=== PATIENT | male | born 1945 | race Caucasian/White ===

== ENCOUNTER 2021-05-10 15:58 | Inpatient (IN) | payer MEDICARE, OTHER, SELFPAY ==
[2021-05-10] VITALS (9 sets, daily range): BP systolic 104–164; BP diastolic 82–105; PULSE 90–107; RESP 17–27; TEMP 36.7–37.2; O2SAT 93–100
--- NOTE | ~2021-05-10 | US_ITS ---
EXAMINATION: US thoracentesis DATE: 05/12/2021 12:31 INDICATION: Right pleural effusion TECHNIQUE: The procedure and its risks and benefits were discussed with the patient. Potential risks discussed included bleeding, infection, and pneumothorax. The patient understood the risks and agreed to proceed. The skin was prepped and draped in sterile fashion. 1% lidocaine was used for local anes thesia. Under ultrasound guidance, a 5 Fr catheter with trochar was advanced into the right pleural e ffusion. Fluid was aspirated. The catheter was removed, and a dressing was applied. There were no imm ediate complications. FINDINGS: Ultrasound images demonstrate a small to moderate right pleural effusion and the catheter within the fluid. IMPRESSION: 1. Successful ultrasound-guided thoracentesis yielding 900 mL of clear yellow fluid. Reviewed, dictated and finalized at location A. ATRICIAN/MEDICAL DOCTOR
--- NOTE | ~2021-05-10 | XR_ITS ---
XR chest 1V portable DATE: 05/11/2021 08:58 INDICATION: Congestive heart failure, COPD. Shortness of breath. TECHNIQUE: Portable upright AP chest on May 11, 2021 at 0853 hours COMPARISON: May 10, 2021 CTA chest FINDINGS: Cardiomegaly. Aortic valve stent. Aortic arch calcification. There is pulmonary vascular co ngestion and redistribution. There is diffuse interstitial prominence and there are patchy diffuse bi lateral pulmonary infiltrates, more prominent in the lower lung zones. The infiltrates are likely due to congestive heart failure/pulmonary edema and some associated probable compressive atelectasis in the lower lung zones secondary to the pleural effusions. Pneumonia is not excluded. There are moderat e bilateral pleural effusions. Diffuse osteopenia. Dextroscoliosis and degenerative spurring of the thoracolumbar spine. IMPRESSION: Congestive heart failure, pulmonary edema and moderate pleural effusions Bilateral pulmonary infiltrates are likely due to pulmonary edema and compressive atelectasis seconda ry to pleural effusions, but pneumonia is not excluded Aortic valve stent. Reviewed, dictated and finalized at location B. ARCH SCHOLAR IMPRESSION: Congestive heart failure, pulmonary edema and moderate pleural effu sions Bilateral pulmonary infiltrates are likely due to pulmonary edema and compressi ve atelectasis secondary to pleural effusions, but pneumonia is not excluded Aortic valve stent.
--- NOTE | ~2021-05-10 | XR_ITS ---
EXAMINATION: [id number] DATE: 05/12/2021 12:15 INDICATION: Right pleural effusion postthoracentesis TECHNIQUE: frontal view of the chest was obtained. COMPARISON: Chest radiograph dated 05/11/2021 FINDINGS: Near complete resolution of a now tiny right pleural effusion post right thoracentesis. Unchanged sma ll to moderate-sized left pleural effusion. Opacities in the lateral mid and lower lung zones most li alo combination of mild pulmonary edema and atelectasis although pneumonia not excludable. Couple un changed skin folds project over the lateral right lower lung zone. No pneumothorax. Cardiomegaly. Aor tic valve repair. There are some surgical clips at the left hilum IMPRESSION: 1. Near complete resolution of a now tiny right pleural effusion post right thoracentesis. 2. Unchanged small to moderate left pleural effusion. 3. Mild opacities in the bilateral mid and lower lung zones likely combination of mild pulmonary марина a and atelectasis with differential including less likely pneumonia. 4. Cardiomegaly with prior aortic valve repair. Reviewed, dictated and finalized at location A. RETE BOOM OPERATOR IMPRESSION: 1. Near complete resolution of a now tiny right pleural effusion post right tho racentesis. 2. Unchanged small to moderate left pleural effusion. 3. Mild opacities in the bilateral mid and lower lung zones likely combination of mild pulmonary edema and atelectasis with differential including less likely pneumonia. 4. Cardiomegaly with prior aortic valve repair.
--- NOTE | ~2021-05-10 | XR_ITS ---
EXAMINATION: XR chest 1V portable DATE: 05/16/2021 06:27 INDICATION: Shortness of breath TECHNIQUE: frontal view of the chest was obtained. COMPARISON: Chest radiograph dated 05/12/2021 FINDINGS: Or opacities throughout both lungs greatest in the lower lung zones with blunting at the costophrenic angles. No pneumothorax. Cardiomegaly. Aortic valve repair. IMPRESSION: 1. Bilateral basilar predominant airspace opacities consistent with small bilateral pleural effusions and associated atelectasis and/or pneumonia. 2. Cardiomegaly. Reviewed, dictated and finalized at location A. E MERCHANDISER IMPRESSION: 1. Bilateral basilar predominant airspace opacities consistent with small bilat eral pleural effusions and associated atelectasis and/or pneumonia. 2. Cardiomegaly.
--- NOTE | ~2021-05-10 | CT_ITS ---
EXAMINATION: CTA chest PE protocol EXAM DATE: 05/10/2021 19:25 INDICATION: Shortness of breath . TECHNIQUE: Spiral CTA of the chest (pulmonary arteries) was performed with 200 cc Omnipaque 350 intr avenous contrast injection. Images were acquired during the pulmonary arterial phase. Coronal maxi mum intensity projection 3D-reconstructions were created by the technologist on dedicated workstation . Axial, coronal and sagittal reformatted images were reviewed. The dose-length product (DLP) for t his examination was 1736.32 mGy-cm. The exposure was tailored according to patient size (auto mA ex posure control), and iterative reconstruction (ASIR) was used as additional dose reduction technique. There is no prior study for comparison. FINDINGS: The main, central pulmonary arteries are dilated which can indicate elevated pulmonary darrell rial pressure, pulmonary arterial hypertension. Pulmonary arteries are well opacified and without in traluminal filling defects. There is cardiomegaly. There is a moderate to large bilateral pleural ef fusions. There is bilateral airspace disease probably pulmonary edema. Aortic valve stent/replacement . There is emphysema. Generalized body wall edema. IMPRESSION: 1. Moderate to large pleural effusions. Adjacent segmental atelectasis. 2. Cardiomegaly. Probable pulmonary edema. Consider CHF. 3. Dilated pulmonary arteries without filling defects. Reviewed, dictated and finalized at location G. PER DRIVER
[2021-05-10 18:22] LABS: Alveolar/Arterial O2 Gradient 95.8 mmHg; Base Excess ABG -7.7 mEq/l (+/-2.0); Fractional Inspired Oxygen 30 %; HCO3 ABG 17.4 mEq/l (22.0-26.0); Oxygen Content ABG 14.7 %vol (16.0-22.0); PCO2 ABG 33.7 mmHg (35.0-45.0); PO2 ABG 78.5 mmHg (80.0-100.0); PO2 FiO2 Ratio Arterial Blood 2.62 %; Total Hemoglobin 11.3 g/dL (12.0-18.0)
[2021-05-10 18:24] LABS: Device NASAL CANNULA; Liters per Minute 2.5 LPM; Modified Allen's Test Pass; Site Drawn RIGHT RADIAL
[2021-05-10 18:32] LABS: Basophils Absolute Auto 0.1 K/mm3 (0.0-0.1); Basophils Percent Auto 0.6 % (0.2-1.2); Eosinophils Percent Auto 0.1 % (0-4.4); Hematocrit 35.8 % (42.0-52.0); Hemoglobin 10.5 g/dL (14.0-18.0); Immature Granulocyte Absolute 0.04 K/mm3 (0.00-0.031); Immature Granulocyte Percent A 0.4 % (0-0.5); Lymphocytes Absolute Auto 1.04 K/mm3 (0.9-3.2); Lymphocytes Percent Auto 11.5 % (18.3-44.2); Mean Corpuscular HGB Conc 29.3 g/dl (32-36); Mean Corpuscular Hemoglobin 25.2 pg (26-34); Mean Corpuscular Volume 85.9 fl (80-100); Mean Platelet Volume 10.5 fl (7.4-10.4); Monocytes Absolute Auto 0.9 K/mm3 (0.1-0.6); Monocytes Percent Auto 9.8 % (2.6-8.5); Neutrophils Percent Auto 77.6 % (45.5-73.1); Platelet Count Result 194 k/mm3 (150-375); Red Blood Count 4.17 M/mm3 (4.6-6.20); Red Cell Distribution Width 20.8 % (11.5-14.5)
[2021-05-10 18:42] LABS: Alanine Aminotransferase 16 U/L (4-50); Albumin Level 3.9 g/dL (3.5-5.1); Alkaline Phosphatase 122 U/L (38-126); Anion Gap 10 mmol/L (8-16); Aspartate Amino Transferase 26 U/L (17-59); Bilirubin,Total 0.5 mg/dL (0.2-1.3); Blood Urea Nitrogen 29 mg/dL (9-20); Calcium 8.7 mg/dL (8.4-10.2); Carbon Dioxide 22 mmol/L (22-30); Chloride 108 mmol/L (98-107); Estimated CRCL calculation 44 ml/min; Estimated Glomerular Filt Rate 59; Glucose 112 mg/dL (65-110); Potassium 4.2 mmol/L (3.4-5.0); Sodium 140 mmol/L (137-145)
[2021-05-10 18:45] LABS: INR 1.4; Partial Thromboplastin Time 31.1 SECONDS (22.3-36.8); Prothrombin Time 17.1 Seconds (11.1-14.7)
[2021-05-10 18:57] LABS: NT Pro B Type Natriuretic Pept 26300 pg/mL (5-100)
--- NOTE | 2021-05-10 18:58 | ED.GENADULT ---
HPI - General Adult General Chief complaint: Recheck/Abnormal Lab/Rx Stated complaint: Low Oxygen Levels Time Seen by Provider: 05/10/21 17:48 History of Present Illness HPI narrative: Patient is a 75-year-old male who presents ER with low pulse oximeter reading. Went to see Dr. Baca to establish care today and was found to have a pulse oximeter reading in the 80s. Patient reports he has been having exertional dyspnea has been worsening since arriving in the area from [place] in the last month. He has history of COPD and has had a lobectomy. Reports that the slightest movements cause him to be extremely dyspneic which is atypical. He does have history of heart disease and recent TAVR. Reports some chest tightness with exertion but not at rest. Related Data Home Medications Medication Instructions Recorded Confirmed albuterol sulfate 90 mcg/actuation 1 inh INHALATION Q4H 05/10/21 05/10/21 aerosol inhaler aspirin 81 mg tablet,delayed 81 mg PO DAILY 05/10/21 05/10/21 release atorvastatin 40 mg tablet 40 mg PO DAILY 05/10/21 05/10/21 baclofen 10 mg tablet 10 mg PO DAILY 05/10/21 05/10/21 citalopram 40 mg tablet 20 mg PO DAILY 05/10/21 05/10/21 digoxin 125 mcg (0.125 mg) tablet 125 mcg PO DAILY 05/10/21 05/10/21 diphenhydramine HCl 25 mg tablet 25 mg PO QHS 05/10/21 05/10/21 ibuprofen 800 mg tablet 800 mg PO TID 05/10/21 05/10/21 lisinopril 10 mg tablet 10 mg PO DAILY 05/10/21 05/10/21 metoprolol tartrate 25 mg tablet 25 mg PO BID 05/10/21 05/10/21 mometasone 1 inh INHALATION DAILY 05/10/21 05/10/21 trazodone 100 mg tablet 100 mg PO QHS PRN 05/10/21 05/10/21 Allergies Allergy/AdvReac Type Severity Reaction Status Date / Time No Known Allergies Allergy Unverified 05/10/21 15:22 Review of Systems Review of Systems: All systems reviewed & are unremarkable except as noted in HPI and below Constitutional: Constitutional: Denies chills, Reports fatigue, Denies fever(s) and Reports weakness ENT: Denies nasal congestion and Denies sore throat Cardiovascular: Cardiovascular: Reports chest pain, Denies rapid heart rate and Denies radiating jaw, neck or arm pain Respiratory: Respiratory: Denies chest congestion, Reports cough, Reports dyspnea and Denies wheezing Gastrointestinal: Gastrointestinal: Denies abdominal pain, Denies diarrhea, Denies nausea and Denies vomiting PMFSH Past Medical History Medical History (Updated 05/10/21 @ 20:11 by Loyd Galo MD) Abnormality of gait CAD (coronary artery disease) COPD (chronic obstructive pulmonary disease) CVA, old, cognitive deficits History of alcohol use Hypertensive heart and chronic kidney disease PVD (peripheral vascular disease) Tobacco abuse Surgical History Surgical History (Updated 05/10/21 @ 19:01 by Loyd Galo MD) History of lobectomy of lung Hx of total knee arthroplasty R Status post transcatheter aortic valve replacement Social History Social History Social History: Smoking packs per day: 1 Smoking cigarettes per day: 20.0 Years smoked: 65 Smoking pack-years: 65.00 Smoking status: Current every day smoker Tobacco type: cigarettes Second hand tobacco smoke exposure: No Alcohol intake: former Substance use: never Substance use type: does not use Gender identity (if verbalized by the patient): Male Sexual Orientation (if Verbalized by the Patient): Straight or Heterosexual Exam Narrative: GENERAL: Chronically ill-appearing, well-nourished, and in no acute distress. HEAD: Normocephalic, atraumatic. EYES: PERRL and EOMI. ENT: Mucous membranes moist. CHEST: Clear to auscultation but diminished throughout. No respiratory distress. HEART: Regular rate and rhythm. Normal peripheral pulses. ABDOMEN: Soft, nontender, nondistended, normal active bowel sounds. EXTREMITIES: Normal range of motion. Tight lower extremity edema 3+ with venou
--- NOTE | 2021-05-10 19:03 | ECG_ITS ---
Measurements Intervals [place] Rate: 103 P: AK: 0 QRS: -51 QRSD: 104 T: 61 QT: 351 QTc: 461 Interpretive Statements ATRIAL FIBRILLATION WITH RAPID VENTRICULAR RESPONSE INCOMPLETE RIGHT BUNDLE BRANCH BLOCK CONSIDER ANTERIOR INFARCT, AGE INDETERMINATE INFERIOR INFARCT, AGE INDETERMINATE ABNORMAL ECG Electronically Signed On 05-10-2021 20:25:26 [employer] by Miguel Angel Lombardi D.O.
[2021-05-10] MEDS: FUROSEMIDE INJ 40 MG/4 ML VIAL IV PUSH (19:48)
[2021-05-10 19:49] LABS: Digoxin < 0.4 ng/mL (0.8-2.0)
--- NOTE | 2021-05-10 19:56 | PM.IMHP ---
H&P: HPI History of Present Illness Date/Time: 05/10/21 19:56 Chief Complaint: Shortness of breath Narrative: This is a 75-year-old male with past medical history significant for tobacco dependence, COPD/emphysema, peripheral vascular disease, stroke, coronary artery disease. Patient just recently relocated to this area from [place] and has yet to establish his care. He presents today to the emergency room due to worsening shortness of breath ongoing now for the last 2 weeks or so unable to sleep in the lab as 3 days due to orthopnea, also noticed a worsening bilateral lower extremity edema, cough productive of sputum which is yellowish to greenish and dark time killian on occasion, patient denies any fevers any chills any rigors, no chest pain, no nausea, no vomiting, no abdominal pain, no diarrhea. Preliminary workup was significant for CT angiogram of the chest with bilateral [id number] pleural effusions but no filling defects, a brain natriuretic peptide was up worse 26,300, a COVID test was negative, troponins x3 were elevated. Patient is being admitted for further evaluation management and treatment. Review of Systems Review of Systems: Shortness of breath, bilateral lower extremity edema, orthopnea. Constitutional: Constitutional: Denies chills, Reports fatigue, Denies fever(s), Denies night sweats and Reports poor appetite Eyes: Eyes: Denies change in vision ENT: Denies dysphagia, Denies vertigo, Denies dizziness, Denies nasal congestion, Denies nasal discharge, Denies nasal obstruction and Denies odynophagia Cardiovascular: Cardiovascular: Denies chest pain, Reports leg edema and Reports orthopnea Respiratory: Respiratory: Reports change in phlegm color, Reports cough, Reports excessive phlegm production and Reports dyspnea Gastrointestinal: Gastrointestinal: Denies abdominal pain, Denies dyspepsia, Denies heartburn, Denies diarrhea, Denies nausea and Denies vomiting Genitourinary: Genitourinary: Denies dysuria Musculoskeletal: Comments: Bilateral lower extremity swelling Integumentary/Breasts: Skin/Breast: Denies change in pigmentation and Denies rash Neurologic: Denies focal weakness and Denies Sensory deficit (Neuro) Psychiatric: Psychiatric: Reports no additional psychiatric complaints and Reports as per HPI Endocrine: Endocrine: Denies cold intolerance, Denies heat intolerance, Denies polyphagia, Denies polydipsia and Denies palpitations Hematologic/Lymphatic: Hematologic/Lymphatic: Reports no additional hematologic/lymphatic complaints and Reports as per HPI Allergic/Immunologic: Allergic/Immunologic: Reports no additional allergic/immunologic complaints and Reports as per HPI [facility] Past Medical History Medical History (Updated 05/10/21 @ 20:11 by Loyd Galo MD) Abnormality of gait CAD (coronary artery disease) COPD (chronic obstructive pulmonary disease) CVA, old, cognitive deficits History of alcohol use Hypertensive heart and chronic kidney disease PVD (peripheral vascular disease) Tobacco abuse Surgical History Surgical History (Updated 05/10/21 @ 19:01 by Loyd Galo MD) History of lobectomy of lung Hx of total knee arthroplasty R Status post transcatheter aortic valve replacement Family History Family History (Updated 05/10/21 @ 22:48 by Ricarda Campbell RN) Other Unknown family medical history Social History Social History Social History: Smoking packs per day: 2 Smoking cigarettes per day: 40.0 Years smoked: 60 Smoking pack-years: 120.00 Smoking status: Current every day smoker Tobacco type: cigarettes Second hand tobacco smoke exposure: No Alcohol intake: former Substance use: never Substance use type: does not use Gender identity (if verbalized by the patient): Male Sexual Orientation (if Verbalized by the Patient): Straight or Heterosexual Spiritual care concerns: N
[2021-05-10] MEDS: ONDANSETRON INJ 4 MG/2 ML VIAL IV PUSH ×2 (20:56→23:32)
[2021-05-10 21:11] LABS: SARS-CoV-2 RNA PCR Negative
--- NOTE | 2021-05-10 22:24 | ADMGEN ---
This patient, Donald Kruger, was admitted to IMU Room 206-01. Patient/family oriented to hospital policies and general routines including ID bracelet, bed and alarms, visiting hours, pain management, procedures, bathroom and other care routines, personal items, smoking policy, room service/diet, and visiting hours. Information on how to activate the Rapid Response Team has been discussed. Patient/Family are encouraged to report perceived risks to care and to ask questions if they do not understand what they are told or what they should do.
[2021-05-10] MEDS: HYDROcodone/acetaminophen (*CRX) 5-325 MG TABLET 1 TAB PO (23:31)
[2021-05-11] VITALS (29 sets, daily range): BP systolic 101–153; BP diastolic 64–111; PULSE 68–114; RESP 15–25; TEMP 36.6–37.4; O2SAT 94–100
[2021-05-11 01:46] LABS: Troponin I 0.312 ng/mL (0.000-0.034)
[2021-05-11] MEDS: methylPREDNISolone SOD SUCC 125 MG VIAL IV PUSH (02:33)
[2021-05-11] MEDS: IPRATROPIUM BR 0.02% INH SOLN 0.5 MG/2.5 ML VIAL INHALATION ×5 (03:41→21:43)
[2021-05-11] MEDS: ENOXAPARIN 80 MG/0.8 ML SYRINGE SUB-Q ×2 (05:50→20:54)
--- NOTE | 2021-05-11 06:00 | ECHO_ITS ---
Patient Info Name: Donald Kruger Age: 75 years : 1945 Gender: Male Ht: 67 in Wt: 176 lbs BSA: 1.96 m2 HR: 98 bpm BP: 145 / 76 mmHg Heart Rhythm: Atrial Fibrillation Technical Quality: Good Exam Date: 05/11/2021 2:59 PM Exam Location: [facility] Pulmonary Exam Room: [facility] Patient Status: Inpatient Admit Date: 05/11/2021 Staff Ordering Physician: Loyd Galo MD Vortex Operator: Elma Ramos RDCS Attending Provider: Frederic Lora MD Referring Physician: Iraj HUIZAR; Exam Type: CA echo doppler color flow Study Info Indications - chf Complete two-dimensional, color flow and Doppler transthoracic echocardiogram is performed. Summary 1. Complete two-dimensional, color flow and Doppler transthoracic echocardiogram is performed. 2. Normal left ventricular size with moderate concentric hypertrophy. Mild reduction of systolic function globally, with severe hypokinesis of the inferior septal wall, near akinesis of the basal inferior wall . Ejection fraction 40-45%. Diastolic dysfunction is present. 3. Right ventricular chamber dimension is moderately enlarged and hypokinetic. 4. Left atrial chamber dimension is severely enlarged. 5. Right atrial chamber dimension is severely enlarged. 6. There is moderate sclerosis and TAVR aortic valve stenosis with a peak velocity of 351 cm/s, mean gradient of 31 mmHg, and aortic valve area of 1.1 cm2. 7. There is mild to moderate eccentric mitral valve regurgitation. 8. There is moderate tricuspid valve regurgitation. 9. There is mild pulmonic regurgitation. 10. Moderate pulmonary hypertension, estimated pulmonary arterial systolic pressure is 61 mmHg. 11. Dilated inferior vena cava with >50% collapse upon inspiration consistent with elevated right atrial pressure, 15 mmHg. 12. left pleural effusion. 13. Atrial fibrillation. Left Ventricle Left ventricular chamber dimension is normal. Left ventricular systolic function is normal, estimated at 40-45%. There is moderately increased left ventricular wall thickness. Left ventricular septal wall motion is normal. The left ventricular diastolic function is abnormal. Right Ventricle Right ventricular chamber dimension is moderately enlarged and hypokinetic. Right ventricular systolic function is reduced. Left Atria Left atrial chamber dimension is severely enlarged. Right Atria Right atrial chamber dimension is severely enlarged. Aortic Valve The TAVR aortic valve is trileaflet. There is moderate sclerosis of the TAVR aortic valve leaflets. There is moderate sclerosis and TAVR aortic valve stenosis with a peak velocity of 351 cm/s, mean gradient of 31 mmHg, and aortic valve area of 1.1 cm2. There is no regurgitation of the TAVR aortic valve. Pulmonic Valve The pulmonic valve is normal. There is no pulmonic valve stenosis. There is mild pulmonic regurgitation. Mitral Valve The mitral valve has normal leaflets. There is no mitral valve stenosis. There is mild to moderate eccentric mitral valve regurgitation. Tricuspid Valve The tricuspid valve leaflets are normal. There is no significant tricuspid valve stenosis. There is moderate tricuspid valve regurgitation. Moderate pulmonary hypertension, estimated pulmonary arterial systolic pressure is 61 mmHg. Pericardium/Pleural The pericardium appears normal. There is no pericardial effusion. Inferior Vena Cava Dilated inferior vena cava with >50% collapse upon inspiration consistent wi
[2021-05-11] MEDS: FUROSEMIDE INJ 40 MG/4 ML VIAL IV PUSH ×2 (08:42→20:53)
--- NOTE | 2021-05-11 09:20 | PM.IMPN ---
Progress Note: A&P Assessment and Plan (1) Acute exacerbation of CHF (congestive heart failure): Code(s): I50.9 - Heart failure, unspecified Status: Acute Assessment and Plan: Admit to IMU Continue Bed rest Fluid restriction to 1500 cc daily Mcdonald catheter for accurate intake and output measurement 2D echocardiogram in a.m. Continuous telemetry Continuous pulse ox Continue metoprolol tartrate Continue digoxin Plan for thoracentesis tomorrow. (2) Elevated troponin: Code(s): R77.8 - Other specified abnormalities of plasma proteins Status: Acute Assessment and Plan: EKG reviewed no prior for comparison Will continue to monitor Trend troponins (3) CHF (congestive heart failure), NYHA class IV: Code(s): I50.9 - Heart failure, unspecified Status: Acute Assessment and Plan: Decompensated (4) CAD (coronary artery disease): Code(s): I25.10 - Atherosclerotic heart disease of [place] coronary artery without angina pectoris Status: Acute Assessment and Plan: Q-waves in inferior leads are present Chest pain (5) PVD (peripheral vascular disease): Code(s): I73.9 - Peripheral vascular disease, unspecified Status: Acute Assessment and Plan: Worsened Diuresing Wound care consult for lymphedema (6) Chronic hypoxemic respiratory failure: Code(s): J96.11 - Chronic respiratory failure with hypoxia Status: Acute Assessment and Plan: Currently supplemental oxygen by nasal cannula Try and keep oxygen saturation at 92-94% (7) CVA, old, cognitive deficits: Code(s): I69.319 - Unspecified symptoms and signs involving cognitive functions following cerebral infarction Status: Acute Assessment and Plan: Unchanged (8) COPD (chronic obstructive pulmonary disease): Code(s): J44.9 - Chronic obstructive pulmonary disease, unspecified Status: Acute Assessment and Plan: Exacerbated Systemic steroids Added Zithromax and Rocephin due to change in sputum quality Bilateral pleural effusions present on CT angio CT guided thoracentesis in the morning diagnostic and therapeutic Will send pleural fluid for studies Breathing treatments q.4 hours Continue to monitor (9) Tobacco abuse: Code(s): Z72.0 - Tobacco use Status: Acute Assessment and Plan: Patient down to 1-2 cigarettes daily Consider nicotine patch as needed (10) Atrial fibrillation with RVR: Code(s): I48.91 - Unspecified atrial fibrillation Status: Acute Assessment and Plan: There is no documented history of atrial fibrillation. Currently rate control with metoprolol and digoxin. Patient is not anticoagulated. She has as score 7. Plan to start anticoagulation with a NOAC after thoracentesis. Subjective Date/time seen: 05/11/21 09:20 Narrative: This is a 75-year-old male with past medical history significant for tobacco dependence, COPD/emphysema, peripheral vascular disease, stroke, coronary artery disease. Patient just recently relocated to this area from [place] and has yet to establish his care. He presents today to the emergency room due to worsening shortness of breath ongoing now for the last 2 weeks or so unable to sleep in the lab as 3 days due to orthopnea, also noticed a worsening bilateral lower extremity edema, cough productive of sputum which is yellowish to greenish and dark time killian on occasion, patient denies any fevers any chills any rigors, no chest pain, no nausea, no vomiting, no abdominal pain, no diarrhea. Preliminary workup was significant for CT angiogram of the chest with bilateral [id number] pleural effusions but no filling defects, a brain natriuretic peptide was up worse 26,300, a COVID test was negative, troponins x3 were elevated. Patient is being admitted for further evaluation management and treatment. S: Patient was seen and examined at the bedside. He is anxious and tamar
[2021-05-11 09:24] LABS: Alveolar/Arterial O2 Gradient 131.1 mmHg; Fractional Inspired Oxygen 36 %; HCO3 ABG 20.7 mEq/l (22.0-26.0); Oxygen Saturation ABG 92.4 % (95.0-100.0); Oxyhemoglobin 89.8 % THb (90.0-100.0); PO2 ABG 72.2 mmHg (80.0-100.0); PO2 FiO2 Ratio Arterial Blood 2.01 %; Total Hemoglobin 11.8 g/dL (12.0-18.0)
[2021-05-11 09:27] LABS: Device NASAL CANNULA; Modified Allen's Test Pass; Site Drawn RIGHT RADIAL; pH ABG 7.272 (7.350-7.450)
[2021-05-11 10:05] LABS: Anion Gap 9 mmol/L (8-16); Blood Urea Nitrogen 34 mg/dL (9-20); Calcium 7.9 mg/dL (8.4-10.2); Carbon Dioxide 20 mmol/L (22-30); Chloride 110 mmol/L (98-107); Estimated CRCL calculation 40 ml/min; Estimated Glomerular Filt Rate 54; Glucose 127 mg/dL (65-110); Magnesium 2.1 mg/dL (1.6-2.3); Potassium 4.2 mmol/L (3.4-5.0); Sodium 139 mmol/L (137-145)
--- NOTE | 2021-05-11 12:37 | PM.CNCAR ---
Assessment and Plan Assessment and plan (1) Atrial fibrillation with RVR: Code(s): I48.91 - Unspecified atrial fibrillation <TEO Michael - Last Filed: 05/11/21 15:50> Status: Acute <TEO Michael - Last Filed: 05/11/21 15:50> Assessment and Plan: Chronicity of this problem is unknown. Patient denies any known history of atrial fibrillation. He is already on digoxin and metoprolol and is reasonably rate controlled with this regimen. He is not anticoagulated. He does have a [id number] score of at least 7. Anticoagulation is indicated however, he is scheduled to undergo thoracentesis tomorrow so will hold off on a/c until this is complete then he can be started on a DOAC. <TEO Michael - Last Filed: 05/11/21 15:50> (2) Acute exacerbation of CHF (congestive heart failure): Code(s): I50.9 - Heart failure, unspecified <TEO Michael - Last Filed: 05/11/21 15:50> Status: Acute <TEO Michael - Last Filed: 05/11/21 15:50> Assessment and Plan: Presented with progressive shortness of breath, lower extremity edema, orthopnea. Chest x-ray showed bilateral pleural effusions, cardiomegaly. BNP was elevated at 26,300. Improving with IV diuresis. 2D echocardiogram has been ordered Agree with IV diuretics for now Plan for right thoracentesis tomorrow Daily weights Compression stockings Accurate intake and output Fluid restriction Low-sodium diet Further recommendations to follow upon review of echocardiogram <TEO Michael - Last Filed: 05/11/21 15:50> (3) Elevated troponin: Code(s): R77.8 - Other specified abnormalities of plasma proteins <TEO Michael - Last Filed: 05/11/21 15:50> Status: Acute <TEO Michael - Last Filed: 05/11/21 15:50> Assessment and Plan: Serial troponin levels were elevated but remained flat. Currently not complaining of any chest pain however, he does endorse chest discomfort from time to time with exertion. His EKG on admission did not have any evidence of acute ischemic changes. Elevated troponin probably secondary to demand ischemia from volume overload and hypoxia. However, would not be unreasonable for this patient to undergo an ischemic evaluation at some point, especially if echocardiogram shows any wall motion abnormalities, reduced EF. <TEO Michael - Last Filed: 05/11/21 15:50> (4) COPD (chronic obstructive pulmonary disease): Code(s): J44.9 - Chronic obstructive pulmonary disease, unspecified <TEO Michael - Last Filed: 05/11/21 15:50> Status: Acute <TEO Michael - Last Filed: 05/11/21 15:50> Assessment and Plan: Receiving nebulizer treatments. Pulmonology is following. Appreciate their involvement and recommendations. <TEO Michael - Last Filed: 05/11/21 15:50> (5) Tobacco abuse: Code(s): Z72.0 - Tobacco use <TEO Michael - Last Filed: 05/11/21 15:50> Status: Acute <TEO Michael - Last Filed: 05/11/21 15:50> Assessment and Plan: Has been smoking 2 packs per day since he was 14 years old. Has recently cut back on his smoking but remains a smoker. Smoking cessation encouraged <TEO Michael - Last Filed: 05/11/21 15:50> (6) CAD (coronary artery disease): Code(s): I25.10 - Atherosclerotic heart disease of [place] coronary artery without angina pectoris <TEO Michael - Last Filed: 05/11/21 15:50> Status: Acute <TEO Michael - Last Filed: 05/11/21 15:50> Assessment and Plan: Per patient's report he had an MD in July of last year. He does not know any of the details surrounding this event. He is unsure if he had stents placed or not. Unfortunately, we do not have any record this since this event took place [place] out of state. Continu
--- NOTE | 2021-05-11 13:05 | PM.CNPUL ---
Assessment and Plan Assessment and plan (1) COPD (chronic obstructive pulmonary disease): Code(s): J44.9 - Chronic obstructive pulmonary disease, unspecified Status: Acute Assessment and Plan: Patient with a 62 pack year tobacco history, current tobacco use, apical predominant centrilobular emphysema on his CT angiogram of the chest and carries a diagnosis of COPD. I have no PFTs. Patient does not know what inhalers he is on. Patient also states he has a left upper lobectomy for lung cancer in 1994 and this must be a partial resection as he has a left upper lobe on a CT angiogram. Currently the [place] [address], a chest x-ray and CT angiogram that show fluid overload with moderate right greater than left pleural effusion and he has improved with Lasix diuresis. I suspect the majority of his symptoms are caused from fluid overload and Cardiology has been consulted. Of note patient has a history of aortic valve stent seen on his radiographs. Currently the patient has worsening shortness of breath but actually states his phlegm has been better over the last week along with no change in his flow phlegm color. I do not believe the patient has a COPD exacerbations and I will continue beta agonist and muscarinic antagonist with albuterol 2.5 mg nebs q.4 hours and ipratropium 0.5 nebs q.4 hours. See no need for oral or systemic steroids at this point. Patient has no white blood cell count and no focal infiltrates on his chest x-ray. I Believe it is prudent to continue ceftriaxone and azithromycin pending negative blood cultures for 48 hours. Is COVID RT PCR study is negative and I will send influenza swab. Patient is scheduled for right thoracentesis and I think this is reasonable given his moderate size pleural effusion, respiratory issues and this will help us determine if this is a transudate versus an exudate. 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 Patient recently moved from [place] and I have no prior medical records. At baseline the patient states that he can walk across the room and then has dyspnea on exertion. Patient is currently using 1-2 cigarettes a day and has smoked from age 13 to current at an average of 1 pack per day for total of 62 pack years. Patient states he takes inhalers but does not know the name of them and he states that he is not on home oxygen. Patient denies vaping, illicit drug use, sandblasting, welding, asbestos were, professional painting or sand blasting. Patient worked as a tanker truck driver and electric cadet. Patient tells me that he has had worsening cough for 3 months and now his shortness of breath over the last few weeks has gotten so bad that he can no longer walk. The patient denied fever, chills, rigors. The patient states that he has chronic phlegm production that has improved over the last 1 week. The patient denies hemoptysis or chest pain. The patient states he sleeps in a recliner for the last year and a half that and that he cannot sleep lying down. Patient has chronic pedal edema and states that his pedal edema fluctuates and right now is about the same as it has been over the last 6 months. Patient presented to the emergency department on 2 1 with worsening shortness of breath and had a white blood cell count of 9.0, eosinophils 0.1%, troponins that were positive at 0.34, 0.32 and 0.31, BNP of 23 6300 a creatinine of 1.2. Patient had a blood gas on 2.5 L nasal cannula
[2021-05-11] MEDS: METOPROLOL TARTRATE 25 MG TABLET PO ×2 (14:00→20:54)
[2021-05-11 14:47] LABS: Lactate Dehydrogenase 539 U/L (313-618)
[2021-05-11] MEDS: cefTRIAXone 2 GM in SODIUM CHLORIDE 0.9% IV 100 ML 200 ML IVPB (16:46)
[2021-05-11] MEDS: lisinopriL 10 MG TABLET PO (16:46)
[2021-05-11] MEDS: DIGOXIN TAB 125 MCG TABLET PO (16:46)
[2021-05-11] MEDS: CITALOPRAM HYDROBROMIDE 20 MG TABLET 40 MG PO (16:46)
[2021-05-11] MEDS: ATORVASTATIN 40 MG TABLET PO (16:46)
[2021-05-11] MEDS: ASPIRIN 81 MG ENTERIC TABLET PO (16:46)
[2021-05-11] MEDS: HYDROcodone/acetaminophen (*CRX) 5-325 MG TABLET 1 TAB PO (20:53)
[2021-05-11] MEDS: traZODone HCL 50 MG TABLET 100 MG PO (20:54)
[2021-05-12] VITALS (25 sets, daily range): BP systolic 95–119; BP diastolic 69–101; PULSE 80–95; RESP 15–22; TEMP 36.2–36.7; O2SAT 90–100
[2021-05-12] MEDS: IPRATROPIUM BR 0.02% INH SOLN 0.5 MG/2.5 ML VIAL INHALATION ×3 (00:55→08:24)
[2021-05-12 05:32] LABS: Anion Gap 6 mmol/L (8-16); Blood Urea Nitrogen 45 mg/dL (9-20); Calcium 7.4 mg/dL (8.4-10.2); Carbon Dioxide 24 mmol/L (22-30); Chloride 107 mmol/L (98-107); Estimated CRCL calculation 46 ml/min; Estimated Glomerular Filt Rate 54; Glucose 158 mg/dL (65-110); Magnesium 2.2 mg/dL (1.6-2.3); Potassium 3.8 mmol/L (3.4-5.0); Sodium 137 mmol/L (137-145)
[2021-05-12 05:40] LABS: Digoxin 0.5 ng/mL (0.8-2.0)
[2021-05-12 09:43] LABS: INR 1.3; Partial Thromboplastin Time 30.7 SECONDS (22.3-36.8); Prothrombin Time 15.6 Seconds (11.1-14.7)
--- NOTE | 2021-05-12 09:44 | PM.IMPN ---
Progress Note: A&P Assessment and Plan (1) Acute exacerbation of CHF (congestive heart failure): Code(s): I50.9 - Heart failure, unspecified Status: Acute Assessment and Plan: Admit to IMU Continue Bed rest Continue Fluid restriction to 1500 cc daily Mcdonald catheter for accurate intake and output measurement 2D echocardiogram in a.m. Continuous telemetry Continuous pulse ox Continue metoprolol tartrate, lisinopril, metoprolol and spironolactone. Continue digoxin Thoracentesis with 900 mL of clear yellow fluid. Follow-up studies. (2) Elevated troponin: Code(s): R77.8 - Other specified abnormalities of plasma proteins Status: Acute Assessment and Plan: EKG reviewed no prior for comparison Will continue to monitor Trend troponins (3) CHF (congestive heart failure), NYHA class IV: Code(s): I50.9 - Heart failure, unspecified Status: Acute Assessment and Plan: Decompensated heart failure: Successful ultrasound-guided thoracentesis yielding 900 mL of clear yellow fluid. Continue IV diuretic, while monitoring chemistries. Monitor daily weight, intake and output. Continue fluid restriction as above. (4) CAD (coronary artery disease): Code(s): I25.10 - Atherosclerotic heart disease of [place] coronary artery without angina pectoris Status: Acute Assessment and Plan: Q-waves in inferior leads are present Chest pain (5) PVD (peripheral vascular disease): Code(s): I73.9 - Peripheral vascular disease, unspecified Status: Acute Assessment and Plan: Worsened Diuresing Wound care consult for lymphedema (6) Chronic hypoxemic respiratory failure: Code(s): J96.11 - Chronic respiratory failure with hypoxia Status: Acute Assessment and Plan: Currently supplemental oxygen by nasal cannula Try and keep oxygen saturation at 92-94% (7) CVA, old, cognitive deficits: Code(s): I69.319 - Unspecified symptoms and signs involving cognitive functions following cerebral infarction Status: Acute Assessment and Plan: Unchanged (8) COPD (chronic obstructive pulmonary disease): Code(s): J44.9 - Chronic obstructive pulmonary disease, unspecified Status: Acute Assessment and Plan: Exacerbated Systemic steroids Added Zithromax and Rocephin due to change in sputum quality Bilateral pleural effusions present on CT angio CT guided thoracentesis in the morning diagnostic and therapeutic Will send pleural fluid for studies Breathing treatments q.4 hours Continue to monitor (9) Tobacco abuse: Code(s): Z72.0 - Tobacco use Status: Acute Assessment and Plan: Patient down to 1-2 cigarettes daily Consider nicotine patch as needed (10) Atrial fibrillation with RVR: Code(s): I48.91 - Unspecified atrial fibrillation Status: Acute Assessment and Plan: There is no documented history of atrial fibrillation. Currently rate control with metoprolol and digoxin. Patient is not anticoagulated. She has as score 7. Plan to start anticoagulation with a NOAC after thoracentesis. Subjective Date/time seen: 05/12/21 09:10 S: Patient was seen examined at the bedside. He denies any complaints. Review of Systems Review of Systems: All systems reviewed & are unremarkable except as noted in HPI and below Constitutional: Constitutional: Denies chills, Reports fatigue, Denies fever(s), Denies night sweats and Reports poor appetite Eyes: Eyes: Denies change in vision ENT: Denies dysphagia, Denies vertigo, Denies dizziness, Denies nasal congestion, Denies nasal discharge, Denies nasal obstruction and Denies odynophagia Cardiovascular: Cardiovascular: Denies chest pain, Reports leg edema, Denies palpitations, Reports dyspnea and Reports orthopnea Respiratory: Respiratory: Reports change in phlegm color, Reports cough, Reports excessive phlegm production and Reports dyspnea Gastrointest
[2021-05-12] MEDS: METOPROLOL TARTRATE 25 MG TABLET PO ×2 (09:50→20:41)
[2021-05-12] MEDS: ATORVASTATIN 40 MG TABLET PO (09:50)
[2021-05-12] MEDS: FUROSEMIDE INJ 40 MG/4 ML VIAL IV PUSH ×2 (09:51→20:39)
[2021-05-12] MEDS: lisinopriL 10 MG TABLET PO (09:51)
[2021-05-12] MEDS: CITALOPRAM HYDROBROMIDE 20 MG TABLET 40 MG PO (09:51)
[2021-05-12] MEDS: DIGOXIN TAB 125 MCG TABLET PO (09:51)
--- NOTE | 2021-05-12 10:06 | PM.PNCARD ---
Progress Note: A&P Assessment and Plan (1) Acute exacerbation of CHF (congestive heart failure): Code(s): I50.9 - Heart failure, unspecified <TEO Michael - Last Filed: 05/12/21 13:11> Status: Acute <Anamika A. TEO Webb - Last Filed: 05/12/21 13:11> Assessment and Plan: Presented with progressive shortness of breath, lower extremity edema, orthopnea. Chest x-ray showed bilateral pleural effusions, cardiomegaly. BNP was elevated at 26,300. Improving with IV diuresis. 2D echocardiogram showed mild systolic dysfunction with severe hypokinesis of the inferior septal and basal inferior isidro. Diastolic dysfunction is present. Also has RV dysfunction. Agree with IV diuretics for now Daily weights Compression stockings Accurate intake and output Fluid restriction Low-sodium diet He is on medical therapy with lisinopril, metoprolol. Will add spironolactone. <TEO Michael - Last Filed: 05/12/21 13:11> (2) Atrial fibrillation with RVR: Code(s): I48.91 - Unspecified atrial fibrillation <TEO Michael - Last Filed: 05/12/21 13:11> Status: Acute <TEO Michael - Last Filed: 05/12/21 13:11> Assessment and Plan: History of atrial fibrillation for a number of years. He is rate controlled on digoxin and metoprolol. He is not anticoagulated due to history of GI bleeding. <TEO Michael - Last Filed: 05/12/21 13:11> (3) Elevated troponin: Code(s): R77.8 - Other specified abnormalities of plasma proteins <TEO Michael - Last Filed: 05/12/21 13:11> Status: Acute <TEO Michael - Last Filed: 05/12/21 13:11> Assessment and Plan: Serial troponin levels were elevated but remained flat. Currently not complaining of any chest pain however, he does endorse chest discomfort from time to time with exertion. His EKG on admission did not have any evidence of acute ischemic changes. Elevated troponin probably secondary to demand ischemia from volume overload and hypoxia. However, would not be unreasonable for this patient to undergo an ischemic evaluation at some point. <TEO Michael - Last Filed: 05/12/21 13:11> (4) COPD (chronic obstructive pulmonary disease): Code(s): J44.9 - Chronic obstructive pulmonary disease, unspecified <TEO Michael - Last Filed: 05/12/21 13:11> Status: Acute <TEO Michael - Last Filed: 05/12/21 13:11> Assessment and Plan: Receiving nebulizer treatments. Pulmonology is following. Appreciate their involvement and recommendations. <TEO Michael - Last Filed: 05/12/21 13:11> (5) Tobacco abuse: Code(s): Z72.0 - Tobacco use <TEO Michael - Last Filed: 05/12/21 13:11> Status: Acute <TEO Michael - Last Filed: 05/12/21 13:11> Assessment and Plan: Has been smoking 2 packs per day since he was 14 years old. Has recently cut back on his smoking but remains a smoker. Smoking cessation encouraged <TEO Michael - Last Filed: 05/12/21 13:11> (6) CAD (coronary artery disease): Code(s): I25.10 - Atherosclerotic heart disease of [place] coronary artery without angina pectoris <TEO Michael - Last Filed: 05/12/21 13:11> Status: Acute <TEO Michael - Last Filed: 05/12/21 13:11> Assessment and Plan: Per patient's report he had an HI in July of last year. He does not know any of the details surrounding this event. He is unsure if he had stents placed or not. Unfortunately, we do not have any record this since this event took place when [place] lived out of state. Continue aspirin, statin. <TEO Michael - Last Filed: 05/12/21 13:11> (7) NSVT (nonsustained ventricular tachycardia): Code(s): I47.2 - Ventricular tachycardia <TEO Michael - Last Filed: 05/12/21 13
--- NOTE | 2021-05-12 11:23 | PM.PNPUL ---
Progress Note: A&P Assessment and Plan (1) COPD (chronic obstructive pulmonary disease): Code(s): J44.9 - Chronic obstructive pulmonary disease, unspecified Status: Acute Assessment and Plan: 05/11 Patient with a 62 pack year tobacco history, current tobacco use, apical predominant centrilobular emphysema on his CT angiogram of the chest and carries a diagnosis of COPD. I have no PFTs. Patient does not know what inhalers he is on. Patient also states he has a left upper lobectomy for lung cancer in 1994 and this must be a partial resection as he has a left upper lobe on a CT angiogram. Currently the patient [place] [address], a chest x-ray and CT angiogram that show fluid overload with moderate right greater than left pleural effusion and he has improved with Lasix diuresis. I suspect the majority of his symptoms are caused from fluid overload and Cardiology has been consulted. Of note patient has a history of aortic valve stent seen on his radiographs. Currently the patient has worsening shortness of breath but actually states his phlegm has been better over the last week along with no change in his flow phlegm color. I do not believe the patient has a COPD exacerbations and I will continue beta agonist and muscarinic antagonist with albuterol 2.5 mg nebs q.4 hours and ipratropium 0.5 nebs q.4 hours. See no need for oral or systemic steroids at this point. Patient has no white blood cell count and no focal infiltrates on his chest x-ray. I Believe it is prudent to continue ceftriaxone and azithromycin pending negative blood cultures for 48 hours. Is COVID RT PCR study is negative and I will send influenza swab. Patient is scheduled for right thoracentesis and I think this is reasonable given his moderate size pleural effusion, respiratory issues and this will help us determine if this is a transudate versus an exudate. 05/12 patient tells me that he is improved. He has less shortness of breath. He feels stronger. He has no wheezing. Patient wore hospital BiPAP overnight. He appears comfortable and I will discontinue the BiPAP at night at this time. He has no wheezing and I do not think he has a COPD exacerbation and given his Afib I will change him to an inhaled long-acting muscarinic antagonist Incruse ellipta 62.5 at 1 puff Q day for his COPD. No steroids required at this time. Low clinical suspicion for pneumonia. Will discontinue antibiotics on 05/13 if blood cultures are negative for 48 hours. Currently is on 1 L nasal cannula saturations 92%, wean as tolerated. Scheduled to have right thoracentesis later today. He has diuresed 4.2 L since admission. Echo from yesterday with EF 40-45%, severe left atrial right atrial enlargement, moderate tricuspid regurg with a PASP of 61 moderately enlarged right ventricle with decreased function. Mild to moderate mitral valve regurgitation, TAVR with moderate stenosis valve area 1.1. Cardiology is following. 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 Patient recently moved from [place] and I have no prior medical records. At baseline the patient states that he can walk across the room and then has dyspnea on exertion. Patient is currently using 1-2 cigarettes a day and has smoked from age 13 to current at an average of 1 pack per day for total of 62 pack years. Patient states he takes inhalers but does not know the name of them and he states that he is not on home oxygen. Patient denies vaping, illicit drug use, sandblasting, welding, asbestos were, professional painting or sand blasting. Patient worked as a truck rental clerk and electric
[2021-05-12 13:22] LABS: Appearance Pleural Fluid Cloudy (Clear); Pleural fluid source Pleural fluid
[2021-05-12 13:23] LABS: Color Pleural Fluid Yellow (Colorless); Nucleated Cell Pleural Fluid 325 /uL (0-1000); RBC Pleural Fluid 1015 /uL (0-0)
[2021-05-12 13:36] LABS: Lymphocytes Pleural Fluid 49 %; Macrophages Pleural Fluid 12 %; Monocytes Pleural Fluid 2 %; Neutrophils Pleural Fluid 37 % (0-25)
[2021-05-12] MEDS: UMECLIDINIUM BROMIDE 62.5 MCG ELLIPTA 1 PUFF INHALATION (13:43)
[2021-05-12] MEDS: SPIRONOLACTONE 25 MG TABLET PO (14:32)
[2021-05-12] MEDS: ENOXAPARIN 80 MG/0.8 ML SYRINGE SUB-Q (17:40)
[2021-05-12] MEDS: cefTRIAXone 2 GM in SODIUM CHLORIDE 0.9% IV 100 ML 200 ML IVPB (17:40)
[2021-05-12] MEDS: HYDROcodone/acetaminophen (*CRX) 5-325 MG TABLET 1 TAB PO (20:40)
[2021-05-12] MEDS: traZODone HCL 50 MG TABLET 100 MG PO (20:40)
[2021-05-13] VITALS (19 sets, daily range): BP systolic 84–158; BP diastolic 47–79; PULSE 66–93; RESP 14–22; TEMP 36.3–37.2; O2SAT 93–100
[2021-05-13] MEDS: ENOXAPARIN 80 MG/0.8 ML SYRINGE SUB-Q ×2 (05:40→17:43)
[2021-05-13 06:31] LABS: Digoxin 0.5 ng/mL (0.8-2.0)
[2021-05-13 07:48] LABS: Anion Gap 1 mmol/L (8-16); Blood Urea Nitrogen 32 mg/dL (9-20); Calcium 7.3 mg/dL (8.4-10.2); Carbon Dioxide 30 mmol/L (22-30); Chloride 106 mmol/L (98-107); Estimated CRCL calculation 59 ml/min; Estimated Glomerular Filt Rate > 60; Glucose 120 mg/dL (65-110); Sodium 137 mmol/L (137-145)
[2021-05-13] MEDS: CITALOPRAM HYDROBROMIDE 20 MG TABLET 40 MG PO (08:37)
[2021-05-13] MEDS: SPIRONOLACTONE 25 MG TABLET PO (08:37)
[2021-05-13] MEDS: ATORVASTATIN 40 MG TABLET PO (08:37)
[2021-05-13] MEDS: METOPROLOL TARTRATE 25 MG TABLET PO ×2 (08:38→21:04)
[2021-05-13] MEDS: DIGOXIN TAB 125 MCG TABLET PO (08:38)
[2021-05-13] MEDS: lisinopriL 10 MG TABLET PO (08:38)
[2021-05-13] MEDS: FUROSEMIDE INJ 40 MG/4 ML VIAL IV PUSH (08:38)
[2021-05-13] MEDS: ASPIRIN 81 MG ENTERIC TABLET PO (08:38)
[2021-05-13] MEDS: UMECLIDINIUM BROMIDE 62.5 MCG ELLIPTA 1 PUFF INHALATION (09:37)
[2021-05-13] MEDS: POTASSIUM CHLORIDE 20 MEQ TABLET 40 MEQ PO (11:51)
[2021-05-13] MEDS: EUCERIN CREAM 120 GM JAR 1 APPLIC TOPICAL (11:51)
--- NOTE | 2021-05-13 13:11 | PM.PNCARD ---
Progress Note: A&P Additional Plan 75-year-old man with: Decompensated biventricular heart failure seems to be nearly euvolemic and I will transition him from IV to oral furosemide. Start with 40 mg daily. It seems clear that he has a prior TAVR valve and chronic atrial fib. What is not clear to me is whether not he has any history of coronary artery disease or not. Patient states that his son has all of the records that are pertinent to this. Apparently he is not anticoagulated because of hemorrhagic problems that were met with previous attempts to anticoagulate him in [place]. I will transition him again to oral furosemide today. I expect him to be stable for discharge in the next 24-48 hours. It will be very important that his son bring the relevant records to the office that pertain to his previous care in [place]. Ziyad Calderón MD [facility] Subjective Date/time seen: Date of service: 05/13/21 13:11 Interval history: Follow-up visit in this 75-year-old man with: Admission with shortness of breath picture of biventricular CHF has mild LV systolic dysfunction on echo, apparent history of chronic atrial fibrillation and history of TAVR procedure which was done previously in [place]. There is inconsistent information in the chart as to whether the patient has a history of coronary artery disease or not. The patient recalls being told of his need for valve replacement but does not recall being told of any disease coronary arteries. Electrocardiogram does show pathological Q-waves in the anterior and inferior leads. Feeling better today following thoracentesis of nearly 1 L of right pleural fluid. Patient is on Lasix 40 IV q.12 hours. Was not on any diuretics a on admission according to the med list. Patient states his previous physicians in [place] prescribed diuretics which he did not take because of the inconvenience of frequent urination. Exam Const: General: comfortable and no acute distress; No confusion Orientation/consciousness: No confusion HENMT: Head: normal to inspection, normocephalic and atraumatic Eyes: General: appearance normal, both eyes and all related structures Pupils: Equal, round and reactive pupils present Neck: Neck: no JVD Carotids: no bruits Resp: Auscultation: clear to auscultation bilaterally and diminished lung sounds Cardio: Rate: tachycardic (Mildly tachycardic) Rhythm: abnormal rhythm Heart sounds: Murmur heart sound present systolic mid, II/ and at the base GI: Auscultation: normal bowel sounds Skin: General skin exam: normal color Neuro: General: No confusion Cranial nerves: Yes Equal, round and reactive pupils present Cognition (Neuro): normal cognition (Seems to have a mild cognitive deficit) Extrem: General: abnormal to inspection, edema and pedal edema Objective Data Vital Signs Vital Signs: Vital Signs - 24 hr 05/12/21 13:43 05/12/21 14:00 05/12/21 16:00 Temperature 36.6 C Pulse Rate 80 84 Respiratory Rate 16 Blood Pressure 119/73 Pulse Oximetry 92 96 05/12/21 18:00 05/12/21 19:42 05/12/21 20:00 Temperature 36.2 C L Pulse Rate 87 91 93 Respiratory Rate 22 H 22 H Blood Pressure 99/69 L Pulse Oximetry 90 97 05/12/21 20:01 05/12/21 20:41 05/12/21 22:00 Temperature Pulse Rate 88 88 Respiratory Rate Blood Pressure Pulse Oximetry 97 05/12/21 23:40 05/13/21 00:00 05/13/21 00:27 Temperature 36.6 C Pulse Rate 84 77 78 Respiratory Rate 16 18 18 Blood Pressure 158/71 H Pulse Oximetry 97 97 97 05/13/21 01:49 05/13/21 03:58 05/13/21 04:00 Temperature Pulse Rate 84 80 88 Respiratory Rate 14 14 Blood Pressure Pulse Oximetry 96 96 05/13/21 05:00 05/13/21 06:00 05/13/21 08:00 Temperature 36.3 C L 36.4 C Pulse Rate 84 86 81 Respiratory Rate 14 17 Blood Pressure 106/69 108/76 Pulse Oximetry 98 100 05/13/21 08:38 05/13/21 09:38 05/13/21 09:55 Temperature Pul
--- NOTE | 2021-05-13 13:12 | PM.PNPUL ---
Progress Note: A&P Assessment and Plan (1) COPD (chronic obstructive pulmonary disease): Code(s): J44.9 - Chronic obstructive pulmonary disease, unspecified Status: Acute Assessment and Plan: 05/11 Patient with a 62 pack year tobacco history, current tobacco use, apical predominant centrilobular emphysema on his CT angiogram of the chest and carries a diagnosis of COPD. I have no PFTs. Patient does not know what inhalers he is on. Patient also states he has a left upper lobectomy for lung cancer in 1994 and this must be a partial resection as he has a left upper lobe on a CT angiogram. Currently the [place] [address], a chest x-ray and CT angiogram that show fluid overload with moderate right greater than left pleural effusion and he has improved with Lasix diuresis. I suspect the majority of his symptoms are caused from fluid overload and Cardiology has been consulted. Of note patient has a history of aortic valve stent seen on his radiographs. Currently the patient has worsening shortness of breath but actually states his phlegm has been better over the last week along with no change in his flow phlegm color. I do not believe the patient has a COPD exacerbations and I will continue beta agonist and muscarinic antagonist with albuterol 2.5 mg nebs q.4 hours and ipratropium 0.5 nebs q.4 hours. See no need for oral or systemic steroids at this point. Patient has no white blood cell count and no focal infiltrates on his chest x-ray. I Believe it is prudent to continue ceftriaxone and azithromycin pending negative blood cultures for 48 hours. Is COVID RT PCR study is negative and I will send influenza swab. Patient is scheduled for right thoracentesis and I think this is reasonable given his moderate size pleural effusion, respiratory issues and this will help us determine if this is a transudate versus an exudate. 05/12 patient tells me that he is improved. He has less shortness of breath. He feels stronger. He has no wheezing. Patient wore hospital BiPAP overnight. He appears comfortable and I will discontinue the BiPAP at night at this time. He has no wheezing and I do not think he has a COPD exacerbation and given his Afib I will change him to an inhaled long-acting muscarinic antagonist Incruse ellipta 62.5 at 1 puff Q day for his COPD. No steroids required at this time. Low clinical suspicion for pneumonia. Will discontinue antibiotics on 05/13 if blood cultures are negative for 48 hours. Currently is on 1 L nasal cannula saturations 92%, wean as tolerated. Scheduled to have right thoracentesis later today. He has diuresed 4.2 L since admission. Echo from yesterday with EF 40-45%, severe left atrial right atrial enlargement, moderate tricuspid regurg with a PASP of 61 moderately enlarged right ventricle with decreased function. Mild to moderate mitral valve regurgitation, TAVR with moderate stenosis valve area 1.1. Cardiology is following. Patient had a right thoracentesis later in the day with 900 mL of clear fluid removed, PH 7.37, Gram stain with white blood cells but no organisms seen differential was neutrophils 37, lymphocytes 49, monocytes 2, macrophages 12. Remainder of the studies are pending. there is no evidence of an empyema at this time. 05/13 patient tells me that he continues to improve but he still has some dyspnea on exertion and shortness of breath. He has no wheezing. Despite the BiPAP being discontinued yesterday he did wear it last night. Creatinine is 1.0 and he has diuresed 9.3 L since admission. Patient is on 1 L nasal cannula saturations 96-98%. I think the majority of this patient's clinical symptoms are related to cardiac issues with fluid overload rather than COPD, COPD exacerbation or pneumonia. I will discontinue antibiotics today as Cultures are negative for 48 hours. I counseled the patient on tobacco cessation Patient is chepe
[2021-05-13] MEDS: traZODone HCL 50 MG TABLET 100 MG PO (21:04)
[2021-05-14] VITALS (16 sets, daily range): BP systolic 97–132; BP diastolic 58–84; PULSE 63–90; RESP 16–20; TEMP 36.2–37.6; O2SAT 91–97
[2021-05-14 05:05] LABS: Hematocrit 28.5 % (42.0-52.0); Hemoglobin 8.4 g/dL (14.0-18.0); Immature Platelet Fraction Pct 6.4 % (0.9-11.2); Mean Corpuscular HGB Conc 29.5 g/dl (32-36); Mean Corpuscular Hemoglobin 25.2 pg (26-34); Mean Corpuscular Volume 85.6 fl (80-100); Mean Platelet Volume 10.7 fl (7.4-10.4); Platelet Count Result 140 k/mm3 (150-375); Red Blood Count 3.33 M/mm3 (4.6-6.20); Red Cell Distribution Width 19.8 % (11.5-14.5); White Blood Count 5.8 K/mm3 (4.5-10.0)
[2021-05-14] MEDS: ENOXAPARIN 80 MG/0.8 ML SYRINGE SUB-Q ×2 (05:43→17:40)
[2021-05-14 05:49] LABS: Digoxin 0.5 ng/mL (0.8-2.0)
[2021-05-14] MEDS: ATORVASTATIN 40 MG TABLET PO (08:20)
[2021-05-14] MEDS: ASPIRIN 81 MG ENTERIC TABLET PO (08:20)
[2021-05-14] MEDS: POTASSIUM CHLORIDE 20 MEQ TABLET.ER PO (08:20)
[2021-05-14] MEDS: CITALOPRAM HYDROBROMIDE 20 MG TABLET 40 MG PO (08:21)
[2021-05-14] MEDS: DIGOXIN TAB 125 MCG TABLET PO (08:21)
[2021-05-14] MEDS: lisinopriL 10 MG TABLET PO (08:22)
[2021-05-14] MEDS: METOPROLOL TARTRATE 25 MG TABLET PO ×2 (08:22→20:24)
[2021-05-14] MEDS: FUROSEMIDE 40 MG TABLET PO (08:22)
[2021-05-14] MEDS: SPIRONOLACTONE 25 MG TABLET PO (08:22)
[2021-05-14] MEDS: EUCERIN CREAM 120 GM JAR 1 APPLIC TOPICAL (08:23)
[2021-05-14] MEDS: HYDROcodone/acetaminophen (*CRX) 5-325 MG TABLET 1 TAB PO ×2 (08:28→18:39)
[2021-05-14 08:37] LABS: Anion Gap 1 mmol/L (8-16); Blood Urea Nitrogen 25 mg/dL (9-20); Calcium 7.5 mg/dL (8.4-10.2); Carbon Dioxide 32 mmol/L (22-30); Chloride 103 mmol/L (98-107); Estimated CRCL calculation 64 ml/min; Estimated Glomerular Filt Rate > 60; Glucose 105 mg/dL (65-110); Potassium 2.9 mmol/L (3.4-5.0); Sodium 136 mmol/L (137-145)
[2021-05-14] MEDS: UMECLIDINIUM BROMIDE 62.5 MCG ELLIPTA 1 PUFF INHALATION (10:14)
--- NOTE | 2021-05-14 12:03 | PM.PNCARD ---
Progress Note: A&P Assessment and Plan (1) Acute on chronic combined systolic and diastolic CHF (congestive heart failure): Code(s): I50.43 - Acute on chronic combined systolic (congestive) and diastolic (congestive) heart failure Status: Acute Assessment and Plan: Patient with CHF extubation, likely acute on chronic. Current echocardiogram shows LVEF 40-40%. Patient is status post TAVR, and current echo shows mean transvalvular gradient of 31 with a maximum velocity of 3.5 meters per sec, suggestive of aortic valve prosthesis stenosis. Awaiting medical records about TAVR procedure. -at this time, continue oral furosemide with close monitoring of electrolytes and renal function. Supplement potassium. -continue beta-dulce, Maykel inhibitor and spironolactone. Will consider switching MAYKEL-inhibitor to ARNI as an outpatient. (2) History of transcatheter aortic valve replacement (TAVR): Code(s): Z95.2 - Presence of prosthetic heart valve Status: Acute Assessment and Plan: Echo during this hospitalization showed elevated mean gradient and vmax across aortic valve prosthesis. Awaiting medical records from outside facility to compare the current echo findings. (3) Persistent atrial fibrillation: Code(s): I48.19 - Other persistent atrial fibrillation Status: Acute Assessment and Plan: Currently rate controlled. Not on anticoagulation due to history of ? Bleeding. Additional Plan Ziyad Calderón MD [facility] Subjective Date/time seen: 05/14/21 12:03 Interval history: Follow-up visit in this 75-year-old man with: Admission with shortness of breath picture of biventricular CHF has mild LV systolic dysfunction on echo, apparent history of chronic atrial fibrillation and history of TAVR procedure which was done previously in [place]. There is inconsistent information in the chart as to whether the patient has a history of coronary artery disease or not. The patient recalls being told of his need for valve replacement but does not recall being told of any disease coronary arteries. Electrocardiogram does show pathological Q-waves in the anterior and inferior leads. Feeling better today following thoracentesis of nearly 1 L of right pleural fluid. Patient is on Lasix 40 IV q.12 hours. Was not on any diuretics a on admission according to the med list. Patient states his previous physicians in [place] prescribed diuretics which he did not take because of the inconvenience of frequent urination. Date of service 05/14/2021-patient reports improvement in lower extremity and scrotal swelling. He denies chest pain. No palpitation or dizziness or syncope for on telemetry, patient is in atrial fibrillation with controlled ventricular response. He states that he had TAVR done in 2020 in [place]. Procedure report is not available. Awaiting medical records. Exam Narrative: PHYSICAL EXAMINATION: GENERAL: Ill-appearing male, Alert, oriented, no acute distress MENTAL STATUS: affect appropriate to mood EYES: Extraocular movements intact, no pallor EARS: External ears appear normal, hearing grossly normal NOSE: Normal and patent, no discharge MOUTH: Mucous membranes moist, tongue normal NECK: Supple, no JVD CHEST: Decreased breath sounds HEART: Normal rate, irregular rhythm, systolic murmur ABDOMEN: Soft, nontender NEUROLOGICAL: Alert, oriented, normal speech MUSCULOSKELETAL: No major deformity, no amputation EXTREMITIES: Mild pedal edema, no clubbing, no cyanosis SKIN: no rash on the exposed area, no cyanosis PSYCHIATRIC: Normal mood, appropriate affect Objective Data Vital Signs Vital Signs: Vital Signs - 24 hr 05/13/21 14:00 05/13/21 16:00 05/13/21 18:00 Temperature 37.2 C Pulse Rate 89 81 90 Respiratory Rate 20 Blood Pressure 109/68 Pulse Oximetry 100 05/13/21 20:00 05/13/21 21:04 05/13/21 22:00 Temperature 36.3 C L Pulse
--- NOTE | 2021-05-14 12:44 | PM.IMPN ---
Progress Note: A&P Assessment and Plan (1) Acute exacerbation of CHF (congestive heart failure): Code(s): I50.9 - Heart failure, unspecified Status: Acute Assessment and Plan: Continue Fluid restriction to 1500 cc daily Mcdonald catheter for accurate intake and output measurement 2D echocardiogram on 05/11/2021 ejection fraction 40-45% with severe hypokinesis of the inferior septal wall near akinesis of the basal inferior wall. Right ventricle moderately enlarged and hypokinetic moderate sclerosis and TAVR aortic valve stenosis with a peak velocity of 351 centimeter/seconds and mean gradient of 31 mm Hg with aortic valve area of 1.1 sq cm moderate tricuspid valve regurgitation moderate pulmonary hypertension 61 mm Hg left pleural effusion atrial fibrillation Continue metoprolol tartrate, lisinopril, metoprolol and spironolactone. Continue digoxin Thoracentesis with 900 mL of clear yellow fluid on 05/12/2021 (2) Elevated troponin: Code(s): R77.8 - Other specified abnormalities of plasma proteins Status: Acute Assessment and Plan: EKG reviewed no prior for comparison Will continue to monitor Trend troponins which remained flat (3) CHF (congestive heart failure), NYHA class IV: Code(s): I50.9 - Heart failure, unspecified Status: Acute Assessment and Plan: Decompensated heart failure: Successful ultrasound-guided thoracentesis yielding 900 mL of clear yellow fluid. Continue IV diuretic, while monitoring chemistries. Monitor daily weight, intake and output. Continue fluid restriction as above. (4) CAD (coronary artery disease): Code(s): I25.10 - Atherosclerotic heart disease of [place] coronary artery without angina pectoris Status: Acute Assessment and Plan: Q-waves in inferior leads are present Chest pain (5) PVD (peripheral vascular disease): Code(s): I73.9 - Peripheral vascular disease, unspecified Status: Acute Assessment and Plan: Worsened Diuresing Wound care consult for lymphedema (6) Chronic hypoxemic respiratory failure: Code(s): J96.11 - Chronic respiratory failure with hypoxia Status: Acute Assessment and Plan: Currently supplemental oxygen by nasal cannula Try and keep oxygen saturation at 92-94% (7) CVA, old, cognitive deficits: Code(s): I69.319 - Unspecified symptoms and signs involving cognitive functions following cerebral infarction Status: Acute Assessment and Plan: Unchanged (8) COPD (chronic obstructive pulmonary disease): Code(s): J44.9 - Chronic obstructive pulmonary disease, unspecified Status: Acute Assessment and Plan: Exacerbated Systemic steroids Added Zithromax and Rocephin due to change in sputum quality Bilateral pleural effusions present on CT angio CT guided thoracentesis done on 05/12/2021 0 fluid culture negative so far Breathing treatments q.4 hours Continue to monitor Antibiotics has been stopped now (9) Tobacco abuse: Code(s): Z72.0 - Tobacco use Status: Acute Assessment and Plan: Patient down to 1-2 cigarettes daily Consider nicotine patch as needed (10) Atrial fibrillation with RVR: Code(s): I48.91 - Unspecified atrial fibrillation Status: Acute Assessment and Plan: There is no documented history of atrial fibrillation. Currently rate control with metoprolol and digoxin. Patient is not anticoagulated. She has as score 7. Currently on Lovenox full dose Subjective Date/time seen: 05/14/21 12:44 Interval history: Feeling better since the paracentesis done mild cough which is chronic leg swelling is much more improved. Scrotal swelling has improved as well he has not ambulated much Review of Systems Review of Systems: All systems reviewed & are unremarkable except as noted in HPI and below (HPI) Exam Narrative: GENERAL: Ill-appearing male, Alert, oriented, no acute distress, on NC oxygt
--- NOTE | 2021-05-14 15:13 | PC.NURSE ---
This patient, Donald Kruger, was transferred to [[facility] ] on 05/14/21 at 1500. Personal belongings sent with patient. Report given to [ Elma]. Appropriate documentation sent with patient.
[2021-05-14] MEDS: traZODone HCL 50 MG TABLET 100 MG PO (20:24)
[2021-05-15] VITALS (9 sets, daily range): BP systolic 116–140; BP diastolic 71–88; PULSE 77–96; RESP 14–18; TEMP 36.7–36.9; O2SAT 94–100
[2021-05-15] MEDS: ENOXAPARIN 80 MG/0.8 ML SYRINGE SUB-Q (05:08)
[2021-05-15] MEDS: lisinopriL 10 MG TABLET PO (08:20)
[2021-05-15] MEDS: METOPROLOL TARTRATE 25 MG TABLET PO ×2 (08:20→20:48)
[2021-05-15] MEDS: POTASSIUM CHLORIDE 20 MEQ TABLET.ER PO (08:21)
[2021-05-15] MEDS: ATORVASTATIN 40 MG TABLET PO (08:21)
[2021-05-15] MEDS: CITALOPRAM HYDROBROMIDE 20 MG TABLET 40 MG PO (08:21)
[2021-05-15] MEDS: SPIRONOLACTONE 25 MG TABLET PO (08:21)
[2021-05-15] MEDS: ASPIRIN 81 MG ENTERIC TABLET PO (08:21)
[2021-05-15] MEDS: DIGOXIN TAB 125 MCG TABLET PO (08:21)
[2021-05-15] MEDS: FUROSEMIDE 40 MG TABLET PO (08:21)
[2021-05-15] MEDS: EUCERIN CREAM 120 GM JAR 1 APPLIC TOPICAL (08:22)
[2021-05-15] MEDS: UMECLIDINIUM BROMIDE 62.5 MCG ELLIPTA 1 PUFF INHALATION (09:03)
[2021-05-15 09:53] LABS: Anion Gap 0 mmol/L (8-16); Blood Urea Nitrogen 21 mg/dL (9-20); Calcium 7.7 mg/dL (8.4-10.2); Carbon Dioxide 35 mmol/L (22-30); Chloride 104 mmol/L (98-107); Estimated CRCL calculation 83 ml/min; Estimated Glomerular Filt Rate > 60; Glucose 151 mg/dL (65-110); Sodium 139 mmol/L (137-145)
--- NOTE | 2021-05-15 10:12 | PM.PNCARD ---
Progress Note: A&P Assessment and Plan (1) Acute on chronic combined systolic and diastolic CHF (congestive heart failure): Code(s): I50.43 - Acute on chronic combined systolic (congestive) and diastolic (congestive) heart failure Status: Acute Assessment and Plan: Patient with CHF extubation, likely acute on chronic. Current echocardiogram shows LVEF 40-40%. Patient is status post TAVR, and current echo shows mean transvalvular gradient of 31 with a maximum velocity of 3.5 meters per sec, suggestive of aortic valve prosthesis stenosis, or possible patient prosthesis mismatch. Awaiting medical records about TAVR procedure. -at this time, continue oral furosemide with close monitoring of electrolytes and renal function. Supplement potassium. -continue beta-dulce, Maykel inhibitor and spironolactone. Consider switching MAYKEL-inhibitor to ARNI as an outpatient. (2) History of transcatheter aortic valve replacement (TAVR): Code(s): Z95.2 - Presence of prosthetic heart valve Status: Acute Assessment and Plan: Echo during this hospitalization showed elevated mean gradient and vmax across aortic valve prosthesis. Awaiting medical records from outside facility to compare the current echo findings. Patient states that his son is trying to get the medical records. (3) Persistent atrial fibrillation: Code(s): I48.19 - Other persistent atrial fibrillation Status: Acute Assessment and Plan: Currently rate controlled. Not on anticoagulation due to history of ? Bleeding. (4) Pleural effusion: Code(s): J90 - Pleural effusion, not elsewhere classified Status: Acute Assessment and Plan: Patient is status post Successful ultrasound-guided thoracentesis yielding 900 mL of clear yellow fluid on 05/12/2021 (5) Abdominal pain: Code(s): R10.9 - Unspecified abdominal pain Status: Acute Assessment and Plan: Patient has been complaining of mild abdominal discomfort without associated symptoms. I spoke with staff, and further evaluation and management will be as per primary team. Recent liver enzymes within normal limits. Subjective Date/time seen: 05/15/21 10:12 Interval history: Follow-up visit in this 75-year-old man with: Admission with shortness of breath picture of biventricular CHF has mild LV systolic dysfunction on echo, apparent history of chronic atrial fibrillation and history of TAVR procedure which was done previously in [place]. There is inconsistent information in the chart as to whether the patient has a history of coronary artery disease or not. The patient recalls being told of his need for valve replacement but does not recall being told of any disease coronary arteries. Electrocardiogram does show pathological Q-waves in the anterior and inferior leads. Feeling better today following thoracentesis of nearly 1 L of right pleural fluid. Patient is on Lasix 40 IV q.12 hours. Was not on any diuretics a on admission according to the med list. Patient states his previous physicians in [place] prescribed diuretics which he did not take because of the inconvenience of frequent urination. Date of service 05/14/2021-patient reports improvement in lower extremity and scrotal swelling. He denies chest pain. No palpitation or dizziness or syncope for on telemetry, patient is in atrial fibrillation with controlled ventricular response. He states that he had TAVR done in 2020 in [place]. Procedure report is not available. Awaiting medical records. Date of Service 05/15/2021-patient reports improvement in shortness of breath. He denies chest pain. He complains of abdominal discomfort. Denies nausea or vomiting. On telemetry, patient had 9 beat NSVT. Patient is status post Successful ultrasound-guided thoracentesis yielding 900 mL of clear yellow fluid on 05/12/2021. Exam Narrative: PHYSICAL EXAMINATION: GENERAL: Ill-appearing male
[2021-05-15] MEDS: HYDROcodone/acetaminophen (*CRX) 5-325 MG TABLET 1 TAB PO ×2 (10:57→20:53)
--- NOTE | 2021-05-15 11:41 | PM.IMPN ---
Progress Note: A&P Assessment and Plan (1) Acute exacerbation of CHF (congestive heart failure): Code(s): I50.9 - Heart failure, unspecified Status: Acute Assessment and Plan: Continue Fluid restriction to 1500 cc daily Mcdonald catheter for accurate intake and output measurement 2D echocardiogram on 05/11/2021 ejection fraction 40-45% with severe hypokinesis of the inferior septal wall near akinesis of the basal inferior wall. Right ventricle moderately enlarged and hypokinetic moderate sclerosis and TAVR aortic valve stenosis with a peak velocity of 351 centimeter/seconds and mean gradient of 31 mm Hg with aortic valve area of 1.1 sq cm moderate tricuspid valve regurgitation moderate pulmonary hypertension 61 mm Hg left pleural effusion atrial fibrillation Continue metoprolol tartrate, lisinopril, metoprolol and spironolactone. Continue digoxin Thoracentesis with 900 mL of clear yellow fluid on 05/12/2021 RECHECK CXR IN AM. (2) Elevated troponin: Code(s): R77.8 - Other specified abnormalities of plasma proteins Status: Acute Assessment and Plan: EKG reviewed no prior for comparison Will continue to monitor Trend troponins which remained flat (3) CHF (congestive heart failure), NYHA class IV: Code(s): I50.9 - Heart failure, unspecified Status: Acute Assessment and Plan: Decompensated heart failure: Successful ultrasound-guided thoracentesis yielding 900 mL of clear yellow fluid. Continue IV diuretic, while monitoring chemistries. Monitor daily weight, intake and output. Continue fluid restriction as above. CURRENTLY ON ORAL DIURETIC (4) CAD (coronary artery disease): Code(s): I25.10 - Atherosclerotic heart disease of [place] coronary artery without angina pectoris Status: Acute Assessment and Plan: Q-waves in inferior leads are present Chest pain (5) PVD (peripheral vascular disease): Code(s): I73.9 - Peripheral vascular disease, unspecified Status: Acute Assessment and Plan: Worsened Diuresing Wound care consult for lymphedema (6) Chronic hypoxemic respiratory failure: Code(s): J96.11 - Chronic respiratory failure with hypoxia Status: Acute Assessment and Plan: Currently supplemental oxygen by nasal cannula Try and keep oxygen saturation at 92-94% (7) CVA, old, cognitive deficits: Code(s): I69.319 - Unspecified symptoms and signs involving cognitive functions following cerebral infarction Status: Acute Assessment and Plan: Unchanged (8) COPD (chronic obstructive pulmonary disease): Code(s): J44.9 - Chronic obstructive pulmonary disease, unspecified Status: Acute Assessment and Plan: Exacerbated Systemic steroids Added Zithromax and Rocephin due to change in sputum quality Bilateral pleural effusions present on CT angio CT guided thoracentesis done on 05/12/2021 0 fluid culture negative so far Breathing treatments q.4 hours Continue to monitor Antibiotics has been stopped now (9) Tobacco abuse: Code(s): Z72.0 - Tobacco use Status: Acute Assessment and Plan: Patient down to 1-2 cigarettes daily Consider nicotine patch as needed (10) Atrial fibrillation with RVR: Code(s): I48.91 - Unspecified atrial fibrillation Status: Acute Assessment and Plan: There is no documented history of atrial fibrillation. Currently rate control with metoprolol and digoxin. Patient is not anticoagulated. She has as score 7. Currently on Lovenox full dose. Will switch to apixaban (11) Abdominal pain: Code(s): R10.9 - Unspecified abdominal pain Status: Acute Assessment and Plan: Nonspecific. Likely due to Lovenox shot that he is getting. He had normal bowel movement today. Will continue to monitor however was switch his Lovenox to apixaban serial abdominal examination if worsens will do CT scan H&H is stable Additional Plan DISP
[2021-05-15 12:01] LABS: Basophils Percent Auto 0.4 % (0.2-1.2); Eosinophils Absolute Auto 0.1 K/mm3 (0-0.3); Hematocrit 29.9 % (42.0-52.0); Hemoglobin 8.8 g/dL (14.0-18.0); Immature Granulocyte Absolute 0.02 K/mm3 (0.00-0.031); Immature Granulocyte Percent A 0.4 % (0-0.5); Immature Platelet Fraction Pct 7.3 % (0.9-11.2); Lymphocytes Absolute Auto 0.63 K/mm3 (0.9-3.2); Lymphocytes Percent Auto 12.8 % (18.3-44.2); Mean Corpuscular HGB Conc 29.4 g/dl (32-36); Mean Corpuscular Hemoglobin 25.1 pg (26-34); Mean Corpuscular Volume 85.2 fl (80-100); Mean Platelet Volume 10.8 fl (7.4-10.4); Monocytes Absolute Auto 0.5 K/mm3 (0.1-0.6); Monocytes Percent Auto 9.6 % (2.6-8.5); Neutrophils Absolute Auto 3.7 K/mm3 (1.3-6.7); Neutrophils Percent Auto 74.8 % (45.5-73.1); Platelet Count Result 141 k/mm3 (150-375); Red Blood Count 3.51 M/mm3 (4.6-6.20); Red Cell Distribution Width 19.8 % (11.5-14.5); White Blood Count 4.9 K/mm3 (4.5-10.0)
[2021-05-15] MEDS: POTASSIUM CHLORIDE 20 MEQ PACKET (FOR LIQUID) 40 MEQ PO (12:45)
[2021-05-15 20:43] LABS: Glucose Pleural Fluid 151 mg/dL; LDH Pleural Fluid 67 U/L; Total Protein Pleural Fluid <3.0 g/dL
[2021-05-15] MEDS: traZODone HCL 50 MG TABLET 100 MG PO (20:48)
[2021-05-15] MEDS: APIXABAN 5 MG TABLET PO (20:48)
[2021-05-16] VITALS (9 sets, daily range): BP systolic 107–126; BP diastolic 77–78; PULSE 72–88; RESP 17–18; TEMP 36.3–36.7; O2SAT 93–97
[2021-05-16 07:23] LABS: Basophils Percent Auto 0.6 % (0.2-1.2); Eosinophils Absolute Auto 0.2 K/mm3 (0-0.3); Eosinophils Percent Auto 2.9 % (0-4.4); Hematocrit 27.3 % (42.0-52.0); Hemoglobin 8.1 g/dL (14.0-18.0); Immature Granulocyte Absolute 0.02 K/mm3 (0.00-0.031); Immature Granulocyte Percent A 0.4 % (0-0.5); Lymphocytes Absolute Auto 0.95 K/mm3 (0.9-3.2); Lymphocytes Percent Auto 18.2 % (18.3-44.2); Mean Corpuscular HGB Conc 29.7 g/dl (32-36); Mean Corpuscular Hemoglobin 24.8 pg (26-34); Mean Corpuscular Volume 83.5 fl (80-100); Mean Platelet Volume 10.6 fl (7.4-10.4); Monocytes Absolute Auto 0.5 K/mm3 (0.1-0.6); Monocytes Percent Auto 9.8 % (2.6-8.5); Neutrophils Absolute Auto 3.6 K/mm3 (1.3-6.7); Neutrophils Percent Auto 68.1 % (45.5-73.1); Platelet Count Result 127 k/mm3 (150-375); Red Blood Count 3.27 M/mm3 (4.6-6.20); Red Cell Distribution Width 19.6 % (11.5-14.5); White Blood Count 5.2 K/mm3 (4.5-10.0)
[2021-05-16 07:31] LABS: Anion Gap -1 mmol/L (8-16); Blood Urea Nitrogen 20 mg/dL (9-20); Calcium 7.7 mg/dL (8.4-10.2); Carbon Dioxide 34 mmol/L (22-30); Chloride 103 mmol/L (98-107); Estimated CRCL calculation 72 ml/min; Estimated Glomerular Filt Rate > 60; Glucose 125 mg/dL (65-110); Potassium 3.3 mmol/L (3.4-5.0); Sodium 136 mmol/L (137-145)
[2021-05-16] MEDS: HYDROcodone/acetaminophen (*CRX) 5-325 MG TABLET 1 TAB PO ×2 (07:48→14:54)
[2021-05-16] MEDS: UMECLIDINIUM BROMIDE 62.5 MCG ELLIPTA 1 PUFF INHALATION (08:15)
[2021-05-16 08:38] LABS: Anisocytosis 1+ (NORMAL); Platelet Estimate Adequate (Adequate)
[2021-05-16 08:39] LABS: Ovalocytes 2+ (NORMAL)
[2021-05-16] MEDS: APIXABAN 5 MG TABLET PO (08:54)
[2021-05-16] MEDS: CITALOPRAM HYDROBROMIDE 20 MG TABLET 40 MG PO (08:54)
[2021-05-16] MEDS: ASPIRIN 81 MG ENTERIC TABLET PO (08:54)
[2021-05-16] MEDS: POTASSIUM CHLORIDE 20 MEQ TABLET.ER PO (08:54)
[2021-05-16] MEDS: ATORVASTATIN 40 MG TABLET PO (08:54)
[2021-05-16] MEDS: DIGOXIN TAB 125 MCG TABLET PO (08:55)
[2021-05-16] MEDS: FUROSEMIDE 40 MG TABLET PO (08:56)
[2021-05-16] MEDS: METOPROLOL TARTRATE 25 MG TABLET PO (08:56)
[2021-05-16] MEDS: lisinopriL 10 MG TABLET PO (08:56)
[2021-05-16] MEDS: SPIRONOLACTONE 25 MG TABLET PO (08:56)
--- NOTE | 2021-05-16 10:33 | PM.PNCARD ---
Progress Note: A&P Additional Plan Elderly gentleman with aortic valve disease status post TAVR also with chronic atrial fibrillation. Presented with shortness of breath and some fluid overload. He is on oral furosemide and appears to be euvolemic. There is no ongoing cardiac reason for hospitalization that I can see. Appropriate follow-up in our office is already scheduled. We will hopefully receive records from the facility in [facility] that performed his aortic valve replacement. Ziyad Calderón MD [facility] Subjective Date/time seen: Date of service: 05/16/21 10:33 Interval history: Follow-up visit in this 75-year-old man with: Admission with shortness of breath picture of biventricular CHF has mild LV systolic dysfunction on echo, apparent history of chronic atrial fibrillation and history of TAVR procedure which was done previously in [place]. There is inconsistent information in the chart as to whether the patient has a history of coronary artery disease or not. The patient recalls being told of his need for valve replacement but does not recall being told of any disease coronary arteries. Electrocardiogram does show pathological Q-waves in the anterior and inferior leads. Feeling better today following thoracentesis of nearly 1 L of right pleural fluid. Patient is on Lasix 40 IV q.12 hours. Was not on any diuretics a on admission according to the med list. Patient states his previous physicians in [place] prescribed diuretics which he did not take because of the inconvenience of frequent urination. Date of service 05/14/2021-patient reports improvement in lower extremity and scrotal swelling. He denies chest pain. No palpitation or dizziness or syncope for on telemetry, patient is in atrial fibrillation with controlled ventricular response. He states that he had TAVR done in 2020 in [place]. Procedure report is not available. Awaiting medical records. Date of Service 05/15/2021-patient reports improvement in shortness of breath. He denies chest pain. He complains of abdominal discomfort. Denies nausea or vomiting. On telemetry, patient had 9 beat NSVT. Patient is status post Successful ultrasound-guided thoracentesis yielding 900 mL of clear yellow fluid on 05/12/2021. Date of service 05/16/2021: Patient is feeling sleepy today otherwise no specific cardiovascular complaints. He want to discuss with me the reason for fluid restriction and would like a more liberalized diet. Exam Narrative: PHYSICAL EXAMINATION: GENERAL: Ill-appearing male, Alert, oriented, no acute distress MENTAL STATUS: affect appropriate to mood EYES: Extraocular movements intact, no pallor EARS: External ears appear normal, hearing grossly normal NOSE: Normal and patent, no discharge MOUTH: Mucous membranes moist, tongue normal NECK: Supple, no JVD CHEST: Decreased breath sounds HEART: Normal rate, irregular rhythm, systolic murmur consistent with his TAVR prosthesis ABDOMEN: Soft, nontender NEUROLOGICAL: Alert, oriented, normal speech MUSCULOSKELETAL: No major deformity, no amputation EXTREMITIES: No discernible edema, no clubbing, no cyanosis SKIN: no rash on the exposed area, no cyanosis PSYCHIATRIC: Normal mood, appropriate affect Const: General: comfortable and no acute distress; No confusion Orientation/consciousness: No confusion HENMT: Head: normal to inspection, normocephalic and atraumatic Eyes: General: appearance normal, both eyes and all related structures Pupils: Equal, round and reactive pupils present Neck: Neck: no JVD Carotids: no bruits Resp: Auscultation: clear to auscultation bilaterally and diminished lung sounds Cardio: Rate: tachycardic (Mildly tachycardic) Rhythm: abnormal rhythm Heart sounds: Murmur heart sound present systolic mid, II/ and at the base GI: Auscultation: normal bowel sounds Skin: General skin exam: normal color Neuro: General: No confu
[2021-05-16] MEDS: EUCERIN CREAM 120 GM JAR 1 APPLIC TOPICAL (11:49)
--- NOTE | 2021-05-16 13:09 | PM.DS ---
DS: Admitting Diagnosis Discharge Date 05/16/2021 Admitting Diagnosis Shortness of breath DS: Discharge Diagnosis Discharge Diagnosis (1) Acute exacerbation of CHF (congestive heart failure): Code(s): I50.9 - Heart failure, unspecified Status: Acute Assessment and Plan: Continue Fluid restriction to 1500 cc daily Mcdonald catheter for accurate intake and output measurement which has now been removed. 2D echocardiogram on 05/11/2021 ejection fraction 40-45% with severe hypokinesis of the inferior septal wall near akinesis of the basal inferior wall. Right ventricle moderately enlarged and hypokinetic moderate sclerosis and TAVR aortic valve stenosis with a peak velocity of 351 centimeter/seconds and mean gradient of 31 mm Hg with aortic valve area of 1.1 sq cm moderate tricuspid valve regurgitation moderate pulmonary hypertension 61 mm Hg left pleural effusion atrial fibrillation Continue metoprolol tartrate, lisinopril, metoprolol and spironolactone. Continue digoxin Thoracentesis with 900 mL of clear yellow fluid on 05/12/2021 RECHECK CXR with persistent opacities but continued to improve from admission continue oral diuresis clinically euvolemic On supplementation along with Lasix. Recheck BMP in 1 week and follow as outpatient basis (2) Elevated troponin: Code(s): R77.8 - Other specified abnormalities of plasma proteins Status: Acute Assessment and Plan: EKG reviewed no prior for comparison Will continue to monitor Trend troponins which remained flat (3) CHF (congestive heart failure), NYHA class IV: Code(s): I50.9 - Heart failure, unspecified Status: Acute Assessment and Plan: Decompensated heart failure: Successful ultrasound-guided thoracentesis yielding 900 mL of clear yellow fluid. Continue IV diuretic, while monitoring chemistries. Monitor daily weight, intake and output. Continue fluid restriction as above. CURRENTLY ON ORAL DIURETIC (4) CAD (coronary artery disease): Code(s): I25.10 - Atherosclerotic heart disease of [place] coronary artery without angina pectoris Status: Acute Assessment and Plan: Q-waves in inferior leads are present Chest pain (5) PVD (peripheral vascular disease): Code(s): I73.9 - Peripheral vascular disease, unspecified Status: Acute Assessment and Plan: Worsened Diuresing Wound care consult for lymphedema (6) Chronic hypoxemic respiratory failure: Code(s): J96.11 - Chronic respiratory failure with hypoxia Status: Acute Assessment and Plan: Currently supplemental oxygen by nasal cannula Try and keep oxygen saturation at 92-94% (7) CVA, old, cognitive deficits: Code(s): I69.319 - Unspecified symptoms and signs involving cognitive functions following cerebral infarction Status: Acute Assessment and Plan: Unchanged (8) COPD (chronic obstructive pulmonary disease): Code(s): J44.9 - Chronic obstructive pulmonary disease, unspecified Status: Acute Assessment and Plan: Exacerbated Systemic steroids Added Zithromax and Rocephin due to change in sputum quality Bilateral pleural effusions present on CT angio CT guided thoracentesis done on 05/12/2021 0 fluid culture negative so far Breathing treatments q.4 hours Continue to monitor Antibiotics has been stopped now Continue albuterol inhaler and Incruse Ellipta at discharge for his underlying COPD (9) Tobacco abuse: Code(s): Z72.0 - Tobacco use Status: Acute Assessment and Plan: Patient down to 1-2 cigarettes daily Consider nicotine patch as needed (10) Atrial fibrillation with RVR: Code(s): I48.91 - Unspecified atrial fibrillation Status: Acute Assessment and Plan: There is no documented history of atrial fibrillation. Currently rate control with metoprolol and digoxin. Patient is not anticoagulated. She has as score 7. Currently on Lovenox full dose. W
--- NOTE | 2021-05-16 15:47 | PCRCNOTE ---
HOME O2 EVAL WAS COMPLETED PRIOR TO DR CANCELLING IT. PT DOES NOT NEED HOME O2, 93% REST, 90-91% WITH ACTIVITY. COMPLETED 1187
[2021-05-16 16:55] LABS: EDCOVIDSCREEN Negative (Negative)
--- NOTE | 2021-05-31 11:00 | PM.IMPN ---
Progress Note: A&P Assessment and Plan (1) Acute exacerbation of CHF (congestive heart failure): Code(s): I50.9 - Heart failure, unspecified Status: Acute Assessment and Plan: Admit to IMU Bed rest Fluid restriction to 1500 cc daily Moses catheter for accurate intake and output measurement 2D echocardiogram in a.m. Continuous telemetry Continuous pulse ox Continue metoprolol tartrate Continue digoxin Cardiology consult (2) Elevated troponin: Code(s): R77.8 - Other specified abnormalities of plasma proteins Status: Acute Assessment and Plan: EKG reviewed no prior for comparison Will continue to monitor Trend troponins (3) CHF (congestive heart failure), NYHA class IV: Code(s): I50.9 - Heart failure, unspecified Status: Acute Assessment and Plan: Decompensated (4) CAD (coronary artery disease): Code(s): I25.10 - Atherosclerotic heart disease of [place] coronary artery without angina pectoris Status: Acute Assessment and Plan: Q-waves in inferior leads are present Chest pain (5) PVD (peripheral vascular disease): Code(s): I73.9 - Peripheral vascular disease, unspecified Status: Acute Assessment and Plan: Worsened Diuresing Wound care consult for lymphedema (6) Chronic hypoxemic respiratory failure: Code(s): J96.11 - Chronic respiratory failure with hypoxia Status: Acute Assessment and Plan: Currently supplemental oxygen by nasal cannula Try and keep oxygen saturation at 92-94% (7) CVA, old, cognitive deficits: Code(s): I69.319 - Unspecified symptoms and signs involving cognitive functions following cerebral infarction Status: Acute Assessment and Plan: Unchanged (8) COPD (chronic obstructive pulmonary disease): Code(s): J44.9 - Chronic obstructive pulmonary disease, unspecified Status: Acute Assessment and Plan: Exacerbated Systemic steroids Added Zithromax and Rocephin due to change in sputum quality Bilateral pleural effusions present on CT angio CT guided thoracentesis in the morning diagnostic and therapeutic Will send pleural fluid for studies Breathing treatments q.4 hours Continue to monitor (9) Tobacco abuse: Code(s): Z72.0 - Tobacco use Status: Acute Assessment and Plan: Patient down to 1-2 cigarettes daily Consider nicotine patch as needed (10) Atrial fibrillation with RVR: Code(s): I48.91 - Unspecified atrial fibrillation Status: Acute (11) Abdominal pain: Code(s): R10.9 - Unspecified abdominal pain Status: Acute Additional Plan DISPOSITION: AWAIT PT/OT EVALUATION. MAY NEED TO GO FOR REHABILAITION. WILL REMOVE MOSES CATHETER TODAY. RECHECK CXR IN AM. Subjective Date/time seen: 05/13/21 09:12 S: Patient was seen examined at the bedside. He denies any complaints. Review of Systems Review of Systems: All systems reviewed & are unremarkable except as noted in HPI and below (HPI) Constitutional: Constitutional: Denies chills, Reports fatigue, Denies fever(s), Denies night sweats and Reports poor appetite Eyes: Eyes: Denies change in vision ENT: Denies dysphagia, Denies vertigo, Denies dizziness, Denies nasal congestion, Denies nasal discharge, Denies nasal obstruction and Denies odynophagia Cardiovascular: Cardiovascular: Denies chest pain, Reports leg edema, Denies palpitations, Reports dyspnea and Reports orthopnea Respiratory: Respiratory: Reports change in phlegm color, Reports cough, Reports excessive phlegm production and Reports dyspnea Gastrointestinal: Gastrointestinal: Denies abdominal pain, Denies dysphagia, Denies dyspepsia, Denies heartburn, Denies diarrhea, Denies nausea, Denies odynophagia and Denies vomiting Genitourinary: Genitourinary: Denies dysuria Integumentary/Breasts: Skin/Breast: Denies change in pigmentation and Denies rash Neurologic: Denies vertigo, Denies dizzine
== END 2021-05-16 18:15 | DRG 291 ==
LOC: ANHED 20:11 → ANHIMU 21:39 → ANH3MEDSUR 05-16 11:51 → ANHIMU 05-17 13:40
PROVIDERS: Internal Medicine; Internal Medicine Pulmonary Disease; Nurse Practitioner; Admitting Provider Internal Medicine; Emergency Provider Emergency Medicine; PCP Family Medicine; Visit Provider Internal Medicine
DX: I13.0 Hypertensive heart and chronic kidney disease with heart failure and stage 1 through stage 4 chronic kidney disease, or unspecified chronic kidney disease (principal); I50.43 Acute on chronic combined systolic (congestive) and diastolic (congestive) heart failure; J96.11 Chronic respiratory failure with hypoxia; I48.19 Other persistent atrial fibrillation; I47.2 Ventricular tachycardia; J90 Pleural effusion, not elsewhere classified; J44.9 Chronic obstructive pulmonary disease, unspecified; I25.10 Atherosclerotic heart disease of native coronary artery without angina pectoris; I73.9 Peripheral vascular disease, unspecified; F17.210 Nicotine dependence, cigarettes, uncomplicated; Z20.822 Contact with and (suspected) exposure to COVID-19; Z96.651 Presence of right artificial knee joint; I5A Non-ischemic myocardial injury (non-traumatic); F43.10 Post-traumatic stress disorder, unspecified; R10.9 Unspecified abdominal pain; I69.319 Unspecified symptoms and signs involving cognitive functions following cerebral infarction; Z95.2 Presence of prosthetic heart valve; I25.2 Old myocardial infarction
CPT/HCPCS: 32555; 36415; 36600; 71045; 71275; 80048; 80053; 80162; 82805; 82945; 83615; 83735; 83880; 83986; 84155; 84157; 84484; 85025; 85027; 85055; 85610; 85730; 87015; 87040; 87070; 87075; 87102; 87116; 87205; 87206; 87426; 88104; 88108; 88305; 89051; 93005; 93306; 94002; 94003; 94640; 96372; 96374; 96375; 96376; 97110; 97116; 97161; 97165; 99285; A9270; C9803; G0378; J0456; J0696; J1650; J1940; J2405; J2930; Q9967; U0003; U0005

== ENCOUNTER 2021-06-24 12:53 | Emergency (ER) | payer MEDICARE, OTHER, SELFPAY ==
[2021-06-24] VITALS (70 sets, daily range): BP systolic 77–123; BP diastolic 34–75; PULSE 57–95; RESP 12–31; TEMP 36.2–36.7; O2SAT 76–100
--- NOTE | 2021-06-24 13:48 | ECG_ITS ---
Measurements Intervals [place] Rate: 63 P: [place]: 0 QRS: -68 QRSD: 113 T: 85 QT: 469 QTc: 483 Interpretive Statements ATRIAL FIBRILLATION WITH ABERRANT CONDUCTION OR VENTRICULAR PREMATURE COMPLEXES LEFT ANTERIOR FASCICULAR BLOCK [QRS AXIS <= -45, QR IN I, RS IN II] NONSPECIFIC ST AND T-WAVE ABNORMALITY PROLONGED QT INTERVAL INTRAVENTRICULAR CONDUCTION DELAY ABNORMAL ECG Electronically Signed On 06-30-2021 15:39:04 CDT by Jef Sunshine M.D.
[2021-06-24] MEDS: PANTOPRAZOLE SODIUM IV 40 MG VIAL 80 MG IV PUSH (14:04)
[2021-06-24] MEDS: SODIUM CHLORIDE 0.9% IV 1,000 ML 999 ML IV CONT (14:05)
[2021-06-24 14:58] LABS: Alanine Aminotransferase 12 U/L (4-50); Alkaline Phosphatase 60 U/L (38-126); Anion Gap 8 mmol/L (8-16); Aspartate Amino Transferase 20 U/L (17-59); Bilirubin,Total 0.2 mg/dL (0.2-1.3); Blood Urea Nitrogen 76 mg/dL (9-20); Calcium 8.5 mg/dL (8.4-10.2); Carbon Dioxide 21 mmol/L (22-30); Chloride 109 mmol/L (98-107); Estimated CRCL calculation 43 ml/min; Estimated Glomerular Filt Rate 59; Glucose 125 mg/dL (65-110); Lipase 46 U/L (23-300); Potassium 5.1 mmol/L (3.4-5.0); Sodium 138 mmol/L (137-145)
[2021-06-24 15:01] LABS: INR 1.9; Prothrombin Time 20.8 Seconds (11.1-14.7)
[2021-06-24 15:02] LABS: Partial Thromboplastin Time 33.2 SECONDS (22.3-36.8)
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
--- NOTE | 2021-06-24 15:25 | PC.NURSE ---
labs redrawn and sent to lab
[2021-06-24 15:40] LABS: Basophils Percent Auto 0.1 % (0.2-1.2); Immature Granulocyte Absolute 0.05 K/mm3 (0.00-0.031); Immature Granulocyte Percent A 0.5 % (0-0.5); Lymphocytes Percent Auto 14.8 % (18.3-44.2); Mean Corpuscular HGB Conc 25.6 g/dl (32-36); Mean Corpuscular Hemoglobin 20.1 pg (26-34); Mean Corpuscular Volume 78.5 fl (80-100); Mean Platelet Volume 10.8 fl (7.4-10.4); Monocytes Absolute Auto 0.8 K/mm3 (0.1-0.6); Monocytes Percent Auto 7.8 % (2.6-8.5); Neutrophils Absolute Auto 7.8 K/mm3 (1.3-6.7); Neutrophils Percent Auto 76.8 % (45.5-73.1); Nucleated Red Blood Cells Perc 0.3 % (0.0-0.2); Platelet Count Result 156 k/mm3 (150-375); Red Blood Count 1.49 M/mm3 (4.6-6.20); Red Cell Distribution Width 21.8 % (11.5-14.5); White Blood Count 10.2 K/mm3 (4.5-10.0)
[2021-06-24 15:44] LABS: Hematocrit 11.7 % (42.0-52.0)
[2021-06-24 15:48] LABS: Anisocytosis 3+ (NORMAL); Hypochromasia 2+ (NORMAL); Platelet Estimate Adequate (Adequate)
[2021-06-24] MEDS: SODIUM CHLORIDE 0.9% IV 250 ML 30 ML IV CONT (15:58)
[2021-06-24] MEDS: TUBING, BLOOD SET 1 EACH XX ×2 (16:40→21:21)
--- NOTE | 2021-06-24 17:15 | PC.NURSE ---
@16:41 started blood transfusion. No reaction noted at this time.
--- NOTE | 2021-06-24 17:35 | PC.NURSE ---
Received call from pts son requesting updates on pt's condition. Pt's son was updated about blood transfusion and possible hospital yransfer. He states he will be in to visit pt.
--- NOTE | 2021-06-24 18:39 | PC.NURSE ---
Addendum entered by Lisa Auguste RN 06/24/21 18:45: No adverse reaction noted Original Note: Completed first unit of RBC. nO ADVERS
--- NOTE | 2021-06-24 19:51 | PC.NURSE ---
2nd unit of RBC infusing at this time without any reaction.
[2021-06-24] MEDS: fentaNYL CITRATE INJ (*CRX) 100 MCG/2 ML VIAL 50 MCG IV PUSH (20:06)
--- NOTE | 2021-06-24 21:07 | PC.NURSE ---
Blood transfusion completed. No adverse reaction noted.
--- NOTE | 2021-06-24 21:32 | PC.NURSE ---
Handoff given to Donovan Zelaya.
--- NOTE | 2021-06-25 01:42 | PC.NURSE ---
Assumed care of pt at this time, discussed POC, pt on tele monitor w/ VSS. Pt on 3 L NC O2 (denies home O2 use), Pt repositioned in stretcher and given ice chips per request. VSS.
[2021-06-25 01:43] VITALS: BP 106/53; PULSE 80; RESP 17; O2SAT 98
[2021-06-25 03:04] VITALS: BP 109/58; PULSE 81; RESP 19; O2SAT 100
== END 2021-06-25 03:07 | disposition short-term general hospital (02) ==
PROVIDERS: Emergency Provider Emergency Medicine; PCP Family Medicine
DX: K92.2 Gastrointestinal hemorrhage, unspecified (principal); D64.9 Anemia, unspecified; I25.10 Atherosclerotic heart disease of native coronary artery without angina pectoris; J44.9 Chronic obstructive pulmonary disease, unspecified; I73.9 Peripheral vascular disease, unspecified; I12.9 Hypertensive chronic kidney disease with stage 1 through stage 4 chronic kidney disease, or unspecified chronic kidney disease; N18.9 Chronic kidney disease, unspecified; I69.919 Unspecified symptoms and signs involving cognitive functions following unspecified cerebrovascular disease; Z90.2 Acquired absence of lung [part of]; Z96.651 Presence of right artificial knee joint; Z95.2 Presence of prosthetic heart valve; F17.210 Nicotine dependence, cigarettes, uncomplicated; Z79.82 Long term (current) use of aspirin; Z79.01 Long term (current) use of anticoagulants
CPT/HCPCS: 36415; 36430; 80048; 80076; 83690; 85025; 85610; 85730; 86850; 86900; 86901; 86920; 93005; 96361; 96365; 96366; 96375; 96376; 99285; C9113; J3010; J7030; J7050; J7060; P9016

== ENCOUNTER 2021-07-25 14:56 | Outpatient (CLI) | payer MEDICARE, OTHER, SELFPAY ==
[2021-07-25 19:19] LABS: Basophils Percent Auto 0.8 % (0.2-1.2); Eosinophils Absolute Auto 0.2 K/mm3 (0-0.3); Eosinophils Percent Auto 3.3 % (0-4.4); Hematocrit 29.6 % (42.0-52.0); Hemoglobin 8.4 g/dL (14.0-18.0); Immature Granulocyte Absolute 0.01 K/mm3 (0.00-0.031); Immature Granulocyte Percent A 0.2 % (0-0.5); Lymphocytes Absolute Auto 0.98 K/mm3 (0.9-3.2); Lymphocytes Percent Auto 19.3 % (18.3-44.2); Mean Corpuscular HGB Conc 28.4 g/dl (32-36); Mean Corpuscular Hemoglobin 25.2 pg (26-34); Mean Corpuscular Volume 88.9 fl (80-100); Monocytes Absolute Auto 0.7 K/mm3 (0.1-0.6); Monocytes Percent Auto 13.4 % (2.6-8.5); Neutrophils Absolute Auto 3.2 K/mm3 (1.3-6.7); Platelet Count Result 153 k/mm3 (150-375); Red Blood Count 3.33 M/mm3 (4.6-6.20); Red Cell Distribution Width 18.7 % (11.5-14.5); White Blood Count 5.1 K/mm3 (4.5-10.0)
[2021-07-25 19:27] LABS: Alanine Aminotransferase 11 U/L (4-50); Albumin Level 3.6 g/dL (3.5-5.1); Alkaline Phosphatase 93 U/L (38-126); Anion Gap 8 mmol/L (8-16); Aspartate Amino Transferase 22 U/L (17-59); Bilirubin,Total 0.3 mg/dL (0.2-1.3); Blood Urea Nitrogen 25 mg/dL (9-20); Calcium 8.4 mg/dL (8.4-10.2); Carbon Dioxide 25 mmol/L (22-30); Chloride 108 mmol/L (98-107); Estimated Glomerular Filt Rate > 60; Glucose 96 mg/dL (65-110); Potassium 4.1 mmol/L (3.4-5.0); Sodium 141 mmol/L (137-145)
[2021-07-25 19:38] LABS: Anisocytosis 1+ (NORMAL); Platelet Estimate Adequate (Adequate)
[2021-07-25 19:39] LABS: Hypochromasia 1+ (NORMAL)
[2021-07-25 19:58] LABS: Iron 29 ug/dL (49-181)
[2021-07-25 20:08] LABS: Percent Iron Saturation 6 % (20-50)
== END 2021-07-25 14:57 | disposition home or self-care (01) ==
LOC: ANHLAB 15:04
PROVIDERS: PCP Family Medicine; Visit Provider Nurse Practitioner Gerontology
DX: I13.10 Hypertensive heart and chronic kidney disease without heart failure, with stage 1 through stage 4 chronic kidney disease, or unspecified chronic kidney disease (principal); J44.9 Chronic obstructive pulmonary disease, unspecified; I25.10 Atherosclerotic heart disease of native coronary artery without angina pectoris; I50.9 Heart failure, unspecified
CPT/HCPCS: 36415; 80053; 82607; 83540; 83550; 84443; 85025

== ENCOUNTER → 2021-08-19 14:50 | Outpatient (CLI) | payer MEDICARE, OTHER, SELFPAY ==
--- NOTE | ~2021-08-19 | MR_ITS ---
EXAMINATION: MR cervical spine wo con DATE: 08/19/2021 16:39 INDICATION: Neck pain. TECHNIQUE: Magnetic resonance imaging (MRI) of the cervical spine was performed without intravenous c ontrast. Sequences included sagittal T2-weighted FSE, sagittal T2-weighted FS FSE, sagittal T1-weight ed FSE, axial MERGE, and axial T2-weighted FSE. COMPARISON: None FINDINGS: There is 13 degrees levoscoliosis of cervicothoracic spine. There is kyphosis of cervical s pine. There is 2 mm retrolisthesis of C5 on C6 and 3 mm anterolisthesis of C7 on T1. There is mild ch ronic anterior wedging of C6 vertebral body. There is moderately decreased disc height at C3-C4 and s everely decreased disc height from C4-C5 through C6-C7. There is mildly decreased disc height at C7-T 1 with disc calcifications. The spinal cord signal intensity is normal. There is a 1.9 cm sebaceous c yst in left posterior neck. The following disc levels are specifically discussed: C2-C3: The disc does not extend beyond the endplate margin. There is ankylosis of the uncovertebral j oints without hypertrophy. There is ankylosis of the facet joints with moderate right and mild left h ypertrophy. There is mild right neural foraminal stenosis. There is no central canal stenosis. C3-C4: The disc is bulging. There is severe bilateral uncovertebral joint osteoarthritis. There is se tammie bilateral facet joint osteoarthritis. There is moderate and severe left neural foraminal stenosi s. There is moderate central canal stenosis with ventral and dorsal indentation of the spinal cord. C4-C5: The disc is bulging. There is severe bilateral uncovertebral joint osteoarthritis. There is se tammie bilateral facet joint osteoarthritis. There is severe bilateral neural foraminal stenosis. There is severe central canal stenosis with ventral and dorsal indentation of the spinal cord. C5-C6: The disc is bulging. There is severe bilateral uncovertebral joint osteoarthritis. There is se tammie bilateral facet joint osteoarthritis. There is moderate bilateral neural foraminal stenosis. The re is moderate central canal stenosis with ventral and dorsal indentation of spinal cord. C6-C7: The disc is bulging. There is severe bilateral uncovertebral joint osteoarthritis. There is se tammie bilateral facet joint osteoarthritis. There is severe right and moderate left neural foraminal s tenosis. There is mild central canal stenosis with ventral indentation of the spinal cord. C7-T1: The disc does not extend beyond the endplate margin. There is ankylosis of the left uncoverteb ral joint with mild hypertrophy. There is mild right uncovertebral joint osteoarthritis. There is sev ere bilateral facet joint osteoarthritis. There is mild right and severe left neural foraminal stenos is. There is mild central canal stenosis. IMPRESSION: 1. Severe cervical spondylosis. Reviewed, dictated and finalized at location A.
--- NOTE | ~2021-08-19 | MR_ITS ---
. EXAMINATION: MR lumbar spine wo con DATE: 08/19/2021 16:40 INDICATION: Other low back pain. TECHNIQUE: Magnetic resonance imaging (MRI) of the lumbar spine was performed without intravenous con trast. Sequences included sagittal T2-weighted FSE, sagittal T2-weighted FS FSE, sagittal T1-weighted FSE, and axial T2-weighted FSE. COMPARISON: None FINDINGS: There is 8 degrees dextrocurvature of thoracolumbar spine. There is chronic anterior wedgin g of L1 vertebral body with 2/5 loss of height. There is mild chronic anterior wedging of T12 vertebr al body. There is 3 mm retrolisthesis of L5 on S1. There is severely decreased disc height at T12-L1, L1-L2, and L2-L3, moderately decreased disc height at L3-L4, and severely decreased disc height at L 4-L5 and L5-S1 with endplate remodeling. The distal spinal cord signal intensity is normal. The conus medullaris is at T12-L1. The following disc levels are specifically discussed: L1-L2: The disc is bulging. There is moderate bilateral facet joint osteoarthritis. There is moderate right and mild left neural foraminal stenosis. There is mild central canal stenosis. L2-L3: The disc is bulging. There is severe bilateral facet joint osteoarthritis. There is moderate r ight and mild left neural foraminal stenosis. There is mild central canal stenosis. L3-L4: The disc is bulging and has an annular fissure. There is severe bilateral facet joint osteoart hritis. There is mild bilateral neural foraminal stenosis. There is mild central canal stenosis. L4-L5: The disc is bulging. There is severe bilateral facet joint osteoarthritis. There is mild bilat eral neural foraminal stenosis. There is mild central canal stenosis. There is moderate stenosis of l eft lateral recess. L5-S1: The disc is bulging and has an annular fissure. There is moderate bilateral facet joint osteoa rthritis. There is mild bilateral neural foraminal stenosis. There is mild central canal stenosis. Th ere is moderate stenosis of the lateral recesses. IMPRESSION: 1. Severe lumbar spondylosis. Reviewed, dictated and finalized at location A.
== END ==
PROVIDERS: PCP Family Medicine; Visit Provider Nurse Practitioner Family
DX: M47.813 Spondylosis without myelopathy or radiculopathy, cervicothoracic region (principal); M48.03 Spinal stenosis, cervicothoracic region; M47.817 Spondylosis without myelopathy or radiculopathy, lumbosacral region; M48.07 Spinal stenosis, lumbosacral region
CPT/HCPCS: 72141; 72148

== ENCOUNTER 2021-09-14 15:19 | Outpatient (CLI) | payer MEDICARE, OTHER, SELFPAY ==
[2021-09-14 15:51] LABS: Basophils Absolute Auto 0.1 K/mm3 (0.0-0.1); Eosinophils Absolute Auto 0.1 K/mm3 (0-0.3); Hematocrit 33.7 % (42.0-52.0); Hemoglobin 9.1 g/dL (14.0-18.0); Immature Granulocyte Absolute 0.01 K/mm3 (0.00-0.031); Immature Granulocyte Percent A 0.2 % (0-0.5); Immature Platelet Fraction Pct 11.6 % (0.9-11.2); Lymphocytes Percent Auto 27.8 % (18.3-44.2); Mean Corpuscular Hemoglobin 19.9 pg (26-34); Mean Corpuscular Volume 73.7 fl (80-100); Monocytes Absolute Auto 0.7 K/mm3 (0.1-0.6); Monocytes Percent Auto 14.7 % (2.6-8.5); Neutrophils Absolute Auto 2.7 K/mm3 (1.3-6.7); Neutrophils Percent Auto 54.3 % (45.5-73.1); Platelet Count Result 125 k/mm3 (150-375); Red Blood Count 4.57 M/mm3 (4.6-6.20); Red Cell Distribution Width 19.9 % (11.5-14.5)
[2021-09-14 16:03] LABS: Alanine Aminotransferase 7 U/L (6-50); Alkaline Phosphatase 109 U/L (38-126); Anion Gap 6 mmol/L (8-16); Aspartate Amino Transferase 16 U/L (17-59); Bilirubin,Total 0.5 mg/dL (0.2-1.3); Blood Urea Nitrogen 19 mg/dL (9-20); Calcium 8.4 mg/dL (8.4-10.2); Carbon Dioxide 28 mmol/L (22-30); Chloride 107 mmol/L (98-107); Estimated Glomerular Filt Rate > 60; Glucose 102 mg/dL (65-110); Potassium 4.1 mmol/L (3.4-5.0); Sodium 141 mmol/L (137-145)
[2021-09-14 16:25] LABS: Hypochromasia 1+ (NORMAL)
[2021-09-14 16:35] LABS: Digoxin 0.7 ng/mL (0.8-2.0)
== END 2021-09-14 15:20 | disposition home or self-care (01) ==
PROVIDERS: PCP Family Medicine; Visit Provider Family Medicine
DX: I11.0 Hypertensive heart disease with heart failure (principal); I50.9 Heart failure, unspecified
CPT/HCPCS: 36415; 80053; 80162; 85025; 85055

== ENCOUNTER 2022-01-18 16:04 | Outpatient (CLI) | payer MEDICARE, OTHER, SELFPAY ==
--- NOTE | ~2022-01-18 | XR_ITS ---
EXAMINATION: XR knee RT min 4V DATE: 01/18/2022 17:01 INDICATION: Right knee pain TECHNIQUE: Four views of the right knee were obtained. COMPARISON: None. FINDINGS: There are changes of total knee arthroplasty. A moderate size joint effusion is present. No fracture is identified. Calcified atherosclerosis is noted. IMPRESSION: 1. Knee joint effusion and total knee replacement without acute osseous abnormality. Reviewed, dictated and finalized at location A. IMPRESSION: 1. Knee joint effusion and total knee replacement without acute osseous abnorma lity.
--- NOTE | ~2022-01-18 | XR_ITS ---
EXAMINATION: XR knee LT min 4V DATE: 01/18/2022 17:01 INDICATION: Left knee pain TECHNIQUE: Four views of the left knee were obtained. COMPARISON: None. FINDINGS: Alignment is normal. No fracture or osteochondral lesion. There is tricompartmental osteoar thritis, worst in the medial compartment No joint effusion/synovitis. Calcified atherosclerosis is n oted. IMPRESSION: 1. Tricompartmental osteoarthritis without acute osseous abnormality. Reviewed, dictated and finalized at location A.
== END 2022-01-18 16:05 | disposition home or self-care (01) ==
PROVIDERS: PCP Family Medicine; Visit Provider Nurse Practitioner Gerontology
DX: M17.12 Unilateral primary osteoarthritis, left knee (principal); Z96.651 Presence of right artificial knee joint; M25.461 Effusion, right knee
CPT/HCPCS: 73564

== ENCOUNTER 2024-04-27 10:23 | Emergency (ER) | payer MEDICARE, OTHER, SELFPAY ==
--- NOTE | ~2024-04-27 | CT_ITS ---
History: Fall, with facial trauma PROCEDURE: CT head without contrast. COMPARISON: None TECHNIQUE: Axial imaging of the head performed from the skull base to the vertex without IV contrast. Sagittal a nd coronal reformations obtained. DLP: 605 mGy-cm FINDINGS: The ventricles are dilated. The dilatation of the ventricles is proportional to the degree of sulcal prominence, not uncommon in the senescent brain. Decreased attenuation is identified within the periventricular white matter, likely secondary to micr ovascular ischemic disease, in a patient of this age. There is no mass, mass effect or midline shift. There is no abnormal extra-axial fluid collection or intracranial hemorrhage. Visualized paranasal sinuses are clear. The mastoid air cells are well aerated. No acute displaced fractures within the overlying cranium. Acute scalp hematoma within the soft tissues overlying the right frontal lobe and superior orbital ri m. Impression: No acute intracranial hemorrhage or suspicious mass effect. Right frontal scalp hematoma extending caudally to the right superior orbital rim without underlying fracture. Reviewed, dictated and finalized at location A. OLOGY INTERVENTIONAL PHYSICIAN Impression: No acute intracranial hemorrhage or suspicious mass effect. Right frontal scalp hematoma extending caudally to the right superior orbital r im without underlying fracture.
--- NOTE | ~2024-04-27 | CT_ITS ---
History: Fall PROCEDURE: CT cervical spine and facial bones without intravenous contrast. COMPARISON: None. Reference is made to an MRI of the cervical spine dated 08/19/2021. TECHNIQUE: Multiple contiguous axial images of the cervical spine were performed without the administration of i ntravenous contrast. Examination of the facial bones is significantly limited by motion artifact, specifically at the leve l of the maxillary sinuses. DLP: 594 mGy-cm FINDINGS: Reversal of the normal curvature of the cervical spine is identified. Significant degenerative disc disease is identified with osteophyte formation, near complete oblitera tion of the intervertebral disc spaces and ankylosis. This demonstrates significant progression from previous examination performed in 2021. Within the vertebral bodies of C4, C5 and C6, severe ankylosis is present with trace collapse. While this finding is similar to MRI examination in 2021, cannot exclude a possible fracture within t he ankylosed bone on CT. The bilateral lung apices are unremarkable. No discrete soft tissue abnormality is present. The airway is patent. Right frontal scalp hematoma extending caudally to the level of the right superior orbital rim, witho ut underlying large displaced facial bone fracture Impression: Severe degenerative disease with ankylosis and multiple oblique linear lucencies within the vertebral bodies of C4, C5 and C6. While this finding is similar to MRI examination in 2021, cannot exclude a possible fracture within t he ankylosed bone on CT. This would be better evaluated with noncontrast enhanced MRI, if the patient is clinically able and if clinical suspicion persists. Right frontal scalp hematoma extending caudally to the level of the right superior orbital rim, witho ut underlying large displaced facial bone fracture (as current examination is limited by motion artif act in this area for small nondisplaced fracture). The lack of fluid within the maxillary sinuses, supports a lack of acute fracture in this area. Reviewed, dictated and finalized at location A. TER ADVOCATE Impression: Severe degenerative disease with ankylosis and multiple oblique linear lucencie s within the vertebral bodies of C4, C5 and C6. While this finding is similar to MRI examination in 2021, cannot exclude a poss ible fracture within the ankylosed bone on CT. This would be better evaluated w ith noncontrast enhanced MRI, if the patient is clinically able and if clinical suspicion persists. Right frontal scalp hematoma extending caudally to the level of the right super ior orbital rim, without underlying large displaced facial bone fracture (as cu rrent examination is limited by motion artifact in this area for small nondispl aced fracture). The lack of fluid within the maxillary sinuses, supports a lack of acute fractu re in this area.
--- NOTE | ~2024-04-27 | XR_ITS ---
HISTORY: trauma COMPARISON: 01/18/2022 TECHNIQUE: 3 views of the left knee were performed FINDINGS: No acute or subacute fracture. Medial tibiofemoral joint space narrowing is identified with near complete obliteration of the medial joint space and sclerosis of the proximal tibia. No suprapatellar joint effusion is identified. The infrapatellar joint space is clear. Calcified atherosclerotic disease is present. IMPRESSION: Significant degenerative disease, as detailed above. No acute fracture. Reviewed, dictated and finalized at location A. ULAR SAWYER STONE
--- NOTE | ~2024-04-27 | XR_ITS ---
HISTORY: trauma PT FALL WITH MULT FACIAL LACS COMPARISON: None TECHNIQUE: 3 views of the left hand were performed. FINDINGS: No acute fracture is identified. The joint spaces are narrowed. The carpal arcs are crowded and sclerotic but intact. Mild radiocarpal joint space narrowing with sclerosis of the distal radius is present. Bone mineralization is age advanced No significant soft tissue swelling. No radiopaque foreign body is identified. IMPRESSION: Severe degenerative disease, without acute fracture or dislocation within the left hand, as detailed above. Reviewed, dictated and finalized at location A. ING SPECIALIST IMPRESSION: Severe degenerative disease, without acute fracture or dislocation within the l eft hand, as detailed above.
--- NOTE | ~2024-04-27 | CT_ITS ---
CLINICAL INDICATION: Fall with facial trauma COMPARISON: None. TECHNIQUE: Multiple contiguous axial images of the chest, abdomen and pelvis were performed following the administration of with 100 mL Omnipaque-350 intravenous contrast The dose-length product (DLP) was 1139.35 mGy-cm. Automated exposure control and iterative reconstruction technique were employed. FINDINGS/OBSERVATIONS: CHEST: Findings within the left hemithorax suggesting prior lung resection (absence of a segment of the left posterior lateral fifth rib, with lateral staple lines). The lungs are otherwise clear. The heart is minimally enlarged, without pericardial effusion. Prosthetic aortic valve is present. No morphologically suspicious or pathologically enlarged lymph nodes are identified within the medias tinum, bilateral axilla or irina. No acute fractures within the chest. Liver: The liver enhances homogeneously and is not enlarged. No. Hepatic fluid is present to suggest the pre sence of acute traumatic injury. Gallbladder and biliary system: The gallbladder is significantly distended, and otherwise unremarkable. Pancreas: The pancreas is atrophic, without ductal dilatation. No peripancreatic fluid is identified to suggest acute traumatic injury. Spleen: The spleen enhances homogeneously and is not enlarged measuring 9 cm in longitudinal dimension. No pe risplenic fluid is present to suggest acute traumatic injury. Kidneys: The bilateral kidneys enhance symmetrically without hydronephrosis or renal calculi. No perirenal fluid is present to suggest acute traumatic injury. Adrenal glands: Unremarkable. Gastrointestinal tract: Colonic diverticulosis without surrounding inflammatory change. Appendix: The appendix is not definitively visualized. However, no pericecal inflammatory change is identified suggest the presence of acute appendicitis. Vasculature: Densely calcified atherosclerotic disease without significant stenosis, aneurysmal dilatation or diss ection. The IVC is patent. Lymph nodes: No pathologically enlarged or morphologically suspicious lymph nodes within the retroperitoneum or at the root of the mesentery. Pelvic structures: The bladder is minimally distended, and otherwise unremarkable. The prostate gland is not enlarged. Body wall and musculoskeletal: 1 Significant degenerative disease within the lumbosacral spine, without acute compression fracture aishwarya reciated. IMPRESSION: No cross-sectional imaging evidence of acute traumatic injury, as detailed above. Innumerable nonacute findings, as detailed above. Reviewed, dictated and finalized at location A. MAT CAR ATTENDANT IMPRESSION: No cross-sectional imaging evidence of acute traumatic injury, as detailed abov e. Innumerable nonacute findings, as detailed above.
--- NOTE | ~2024-04-27 | XR_ITS ---
HISTORY: trauma COMPARISON: None TECHNIQUE: 3 views of the right hand were performed. FINDINGS: No acute fracture is identified. The joint spaces are preserved. The carpal arcs are narrowed and sclerotic with ankylosis but intact. Mild radiocarpal joint space narrowing with sclerosis of the distal radius is present. Significant narrowing of the first carpometacarpal joint space is noted. Periarticular osteopenia is also present. Bone mineralization is age advanced No significant soft tissue swelling. No radiopaque foreign body is identified. IMPRESSION: Severe degenerative disease without acute fracture or dislocation within the right hand, as detailed above. Reviewed, dictated and finalized at location A. KLAYER APPRENTICE IMPRESSION: Severe degenerative disease without acute fracture or dislocation within the ri ght hand, as detailed above.
--- NOTE | ~2024-04-27 | XR_ITS ---
HISTORY: trauma COMPARISON: 01/18/2022 TECHNIQUE: 3 views of the right knee were performed. FINDINGS: A right total knee prosthetic is identified. No periprosthetic fracture is noted. A suprapatellar joint effusion is identified. The infrapatellar joint space is opacified. IMPRESSION: No periprosthetic fracture, as detailed above. Reviewed, dictated and finalized at location A. RNATIONAL NURSE
--- NOTE | 2024-04-27 10:21 | ECG_ITS ---
Test Date: 2024-04-27 10:30:15 Measurements Intervals [place] Rate: 66 P: 0 LA: 0 QRS: 257 QRSD: 114 T: 90 QT: 388 QTc: 407 Interpretive Statements ATRIAL FIBRILLATION INCOMPLETE RIGHT BUNDLE BRANCH BLOCK [90+ ms QRS DURATION, TERMINAL R IN V1/V2, 40+ ms S IN I/aVL/V4/V5/V6] POSSIBLE RIGHT VENTRICULAR HYPERTROPHY [SOME/ALL OF: PROMINENT R IN V1, LATE TRANSITION, RAD, MAGNO, SSS] Poor R wave progression INFERIOR MYOCARDIAL INFARCTION , OF INDETERMINATE AGE [40+ ms Q WAVE AND/OR ST/T ABNORMALITY IN II/aVF] No previous ECG available for comparison Electronically Signed On 04-28-2024 18:14:49 [employer] by Kota Abbasi M.D.
[2024-04-27 10:23] VITALS: BP 118/82; PULSE 86; RESP 16; TEMP 36.8; O2SAT 95
--- NOTE | 2024-04-27 10:34 | PC.NURSE ---
Injuries: -Skin tears with small amount of active bleeding: R. elbow, R. wrist, palm of L. hand. Blood cleaned from wounds and antibiotic ointment with gauze applied to all. - Swollen R. knee with bruising and multiple abrasions. No active bleeding. - hematoma to R. eye with small amount of active bleeding. dressed with antibiotic ointment and gauze.
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
[2024-04-27 10:57] LABS: Basophils Percent Auto 0.3 % (0.2-1.2); Hematocrit 44.1 % (42.0-52.0); Hemoglobin 14.6 g/dL (14.0-18.0); Immature Granulocyte Absolute 0.08 K/mm3 (0.00-0.031); Immature Granulocyte Percent A 0.5 % (0-0.5); Immature Platelet Fraction Pct 12.8 % (0.9-11.2); Lymphocytes Absolute Auto 0.56 K/mm3 (0.9-3.2); Lymphocytes Percent Auto 3.7 % (18.3-44.2); Mean Corpuscular HGB Conc 33.1 g/dl (32-36); Mean Corpuscular Volume 108.6 fl (80-100); Mean Platelet Volume 12.1 fl (7.4-10.4); Monocytes Absolute Auto 1.1 K/mm3 (0.1-0.6); Monocytes Percent Auto 7.3 % (2.6-8.5); Neutrophils Absolute Auto 13.3 K/mm3 (1.3-6.7); Neutrophils Percent Auto 88.2 % (45.5-73.1); Platelet Count Result 95 k/mm3 (150-375); Red Blood Count 4.06 M/mm3 (4.6-6.20); Red Cell Distribution Width 13.6 % (11.5-14.5); White Blood Count 15.1 K/mm3 (4.5-10.0)
[2024-04-27 11:02] LABS: Estimated CRCL calculation 40 ml/min; Estimated Glomerular Filt Rate 53
[2024-04-27 11:34] LABS: INR 1.4; Partial Thromboplastin Time 28.7 Seconds (22.3-36.8); Prothrombin Time 17.3 Seconds (11.1-14.7)
[2024-04-27 11:44] LABS: Alanine Aminotransferase 20 U/L (6-50); Albumin Level 3.3 g/dL (3.5-5.1); Alkaline Phosphatase 88 U/L (38-126); Anion Gap 10 mmol/L (4-12); Aspartate Amino Transferase 30 U/L (17-59); Bilirubin,Total 0.9 mg/dL (0.2-1.3); Blood Urea Nitrogen 26 mg/dL (9-20); Calcium 8.1 mg/dL (8.4-10.2); Carbon Dioxide 24 mmol/L (22-30); Chloride 108 mmol/L (98-107); Estimated CRCL calculation 46 ml/min; Estimated Glomerular Filt Rate > 60; Glucose 126 mg/dL (65-110); Potassium 3.7 mmol/L (3.4-5.0); Sodium 142 mmol/L (137-145)
[2024-04-27 12:04] VITALS: BP 114/84; PULSE 66; RESP 16; O2SAT 100
[2024-04-27] MEDS: HYDROmorphone HCL INJ (*CRX) 1 MG/ML SYR 0.5 MG IV PUSH (12:04)
[2024-04-27 13:06] VITALS: BP 104/61; PULSE 69; RESP 16; O2SAT 93
[2024-04-27 14:00] VITALS: BP 110/70; PULSE 75; RESP 16; O2SAT 93
--- OUTSIDE RECORDS SUMMARY | 2024-05-01 10:20 | XMS_ITS | Patient Health Summary ---
Author Organization [facility] Address [address] [place] [address] Care Team Providers Care Director Telecommunications Name Role Phone Unavailable Primary Care Provider Unavailabl e Note from [facility],non-owned Affiliates and Associated Physician Practices is amultiple site organization consisting of ambulatory clinics and hospital sitesin [place], [place], [place] and [place]. This disclosure is being madepursuant to the Care Everywhere program and may not contain all information available regarding this patient. Last updated 17.[facility] [email or web address] Allergies No known active allergies Medications * Be aware that medications may not be up to date on this document. Alwaysverify current medications with the patient. * acetaminophen (TYLENOL) 325 MG tablet Take 650 mg by mouth every 4 hours as needed for Fever or Pain Maximum allowable Acetaminophen amount = 4 Grams (4000 mg) / 24 hours. * atorvastatin (LIPITOR) 40 MG tablet Take 40 mg by mouth at bedtime * baclofen (LIORESAL) 10 MG tablet Take 10 mg by mouth 3 times daily May cause drowsiness. * citalopram (CELEXA) 40 MG tablet Take 40 mg by mouth once daily * digoxin (LANOXIN) 0.125 MG tablet Take 0.125 mg by mouth once daily * apixaban (ELIQUIS) 5 MG tablet Take 5 mg by mouth 2 times daily * vitamin D, ergocalciferol, (DRISDOL) 1.25 MG (62464 UT) capsule Take 50,000 Units by mouth every 7 days * eucerin (EUCERIN) lotion Apply to affected area 2 times daily * furosemide (LASIX) 40 MG tablet Take 40 mg by mouth once daily * lisinopril (PRINIVIL; ZESTRIL) 10 MG tablet Take 10 mg by mouth once daily * potassium chloride ER (KLOR-CON M) 20 MEQ tablet Take 20 mEq by mouth once daily * spironolactone (ALDACTONE) 25 MG tablet Take 25 mg by mouth once daily * traZODone (DESYREL) 100 MG tablet Take 100 mg by mouth at bedtime * albuterol HFA (PROVENTIL; VENTOLIN; PROAIR) 108 (90 Base) MCG/ACT inhaler Inhale 1 puff by mouth every 4 hours as needed * diphenhydrAMINE (BENADRYL) 25 MG tablet Take 25 mg by mouth nightly as needed * HYDROcodone-acetaminophen (NORCO) 5-325 MG tablet Take 1 tablet by mouth 3 times daily as needed for Pain * umeclidinium (INCRUSE ELLIPTA) 62.5 MCG/INH inhaler Inhale 1 puff by mouth once daily * tamsulosin (FLOMAX) 0.4 MG capsule(Started 07/11/2021) Take 1 (one) capsule by mouth once daily At the same time every day after a meal. * pantoprazole EC (PROTONIX) 40 MG tablet(Started 07/11/2021) Take 1 (one) tablet by mouth 2 times daily * sucralfate (CARAFATE) 1 GM tablet(Started 07/11/2021) Take 1 (one) tablet by mouth 4 times daily - before meals & nightly Active Problems Problem Noted Date Diagnosed Date Gastrointestinal hemorrhage 06/24/2021 Social History Tobacco Use Types Packs/Day Years Used Date Smoking Tobacco: Former Cigarettes Smokeless Tobacco: Never Tobacco Cessation:Counseling Given: Yes Alcohol Use Standard Drinks/Week Comments Not Currently 0 (1 standard drink = 0.6 oz pur e alcohol) Hunger Vital Sign Answer Date Recorded Within the past 12 months, y ou worried that your food would run out before you got the money to buy more. Never true 06/28/19 22 Within the past 12 months, t he food you bought just didn't last and you didn't have money to get more. Never true 06/27/2021 Sex and Gender Information Value Date Recorded Sex Assigned at Not on file Gender Identity Not on file Sexual Orientation Not on file Last Filed Vital Signs Vital Sign Reading Time Taken Comments Blood Pressure 122/68 07/14/2021 11:09 AM CDT Pulse 108 07/11/2021 12:20 PM CDT Temperature 37 ??C (98.6 ??F) 07/11/2021 12:20 PM CDT Respiratory Rate 22 07/11/2021 12:20 PM CDT Oxygen Saturation 99% 07/11/2021 12:20 PM CDT Inhaled Oxygen Concentration - - Weight 79.8 kg (176 lb) 07/14/2021 11:09 AM CDT Height 175.3 cm (5' 9 ) 07/14/2021 11:09 AM CDT Body Mass Index 25.99 07/14/2021 11:09 AM CDT Procedures * CARDIAC RHYTHM STRIP ORDER(Performed 07/13/2021) * BASIC METABOLIC PANEL (CALCIUM TOTAL)(Performed 07/11/2021) * CBC W/O DIFFERENTIAL(Performed 07/11/2021) * BASIC METABOLIC PANEL (CALCIUM TOTAL)(Performed 07/10/2021) * CBC W/O DIFFERENTIAL(Performed 07/10/2021) * BASIC METABOLIC PANEL (CALCIUM TOTAL)(Performed 07/09/2021) * CBC W/O DIFFERENTIAL(Performed 07/09/2021) * BASIC METABOLIC PANEL (CALCIUM TOTAL)(Performed 07/08/2021) * CBC W/O DIFFERENTIAL(Performed 07/08/2021) * BASIC METABOLIC PANEL (CALCIUM TOTAL)(Performed 07/07/2021) * CBC W/O DIFFERENTIAL(Performed 07/07/2021) * EGD(Performed 07/06/2021) * [facility] FLEX TRANSORAL DX(Performed 07/06/2021) * HGB HCT PANEL(Performed 07/06/2021) * PREPARE RBC LEUKOREDUCED UNIT(Performed 07/06/2021) * BASIC METABOLIC PANEL (CALCIUM TOTAL)(Performed 07/06/2021) * CBC W/O DIFFERENTIAL(Performed 07/06/2021) * PREPARE RBC LEUKOREDUCED UNIT(Performed 07/05/2021) * HGB HCT PANEL(Performed 07/05/2021) * PREPARE RBC LEUKOREDUCED UNIT(Performed 07/05/2021) * RETIC COUNT(Performed 07/05/2021) * FERRITIN(Performed 07/05/2021) * IRON + TRANSFERRIN PANEL(Performed 07/05/2021) * COMPREHENSIVE METABOLIC PANEL(Performed 07/05/2021) * CBC W/O DIFFERENTIAL(Performed 07/05/2021) * TRANSFUSE RED BLOOD CELL LEUKOREDUCED UNIT(S)(Performed 07/04/2021) * TRANSFUSE RED BLOOD CELL LEUKOREDUCED UNIT(S)(Performed 07/04/2021) * TYPE + SCREEN PANEL(Performed 07/04/2021) * CBC W/O DIFFERENTIAL(Performed 07/04/2021) * COMPREHENSIVE METABOLIC PANEL(Performed 07/04/2021) * COMPREHENSIVE METABOLIC PANEL(Performed 07/03/2021) * CBC W/O DIFFERENTIAL(Performed 07/03/2021) * COMPREHENSIVE METABOLIC PANEL(Performed 07/02/2021) * CBC W/O DIFFERENTIAL(Performed 07/02/2021) * COMPREHENSIVE METABOLIC PANEL(Performed 07/01/2021) * CBC W/O DIFFERENTIAL(Performed 07/01/2021) * DIGOXIN LEVEL(Performed 07/01/2021) * COMPREHENSIVE METABOLIC PANEL(Performed 06/30/2021) * CBC W/O DIFFERENTIAL(Performed 06/30/2021) * COMPREHENSIVE METABOLIC PANEL(Performed 06/29/2021) * CBC W/O DIFFERENTIAL(Performed 06/29/2021) * CT RENAL STONE(Performed 06/28/2021) Performed for Pain with urination * BASIC METABOLIC PANEL (CALCIUM TOTAL)(Performed 06/28/2021) * CBC W/O DIFFERENTIAL(Performed 06/28/2021) * URINALYSIS REFLEX MICROSCOPIC REFLEX CULTURE(Performed 06/27/2021) * PROCEDURE NOT LISTED(Performed 06/27/2021) * [facility] FLEX TRANSORAL DX(Performed 06/27/2021) * EGD(Performed 06/27/2021) * COMPREHENSIVE METABOLIC PANEL(Performed 06/27/2021) * CBC W/O DIFFERENTIAL(Performed 06/27/2021) * HGB HCT PANEL(Performed 06/26/2021) * PHOSPHORUS BLOOD(Performed 06/26/2021) * MAGNESIUM BLOOD(Performed 06/26/2021) * COMPREHENSIVE METABOLIC PANEL(Performed 06/26/2021) * CBC W/O DIFFERENTIAL(Performed 06/26/2021) * TRANSFUSE RED BLOOD CELL LEUKOREDUCED UNIT(S)(Performed 06/25/2021) * PREPARE RBC LEUKOREDUCED UNIT(Performed 06/25/2021) * HGB HCT PANEL(Performed 06/25/2021) * TRANSFUSE RED BLOOD CELL LEUKOREDUCED UNIT(S)(Performed 06/25/2021) * PREPARE RBC LEUKOREDUCED UNIT(Performed 06/25/2021) * HGB HCT PANEL(Performed 06/25/2021) * TYPE + SCREEN PANEL(Performed 06/25/2021) * HGB HCT PANEL(Performed 06/25/2021) * BLOOD TYPE VERIFICATION(Performed 06/25/2021) * CBC W AUTO DIFFERENTIAL(Performed 06/25/2021) * PT-INR(Performed 06/25/2021) * PHOSPHORUS BLOOD(Performed 06/25/2021) * MAGNESIUM BLOOD(Performed 06/25/2021) * LACTIC ACID BLOOD(Performed 06/25/2021) * COMPREHENSIVE METABOLIC PANEL(Performed 06/25/2021) * TRANSFUSE RED BLOOD CELL LEUKOREDUCED UNIT(S) Results * CARDIAC RHYTHM STRIP ORDER (07/13/2021 3:44 PM CDT) Narrative 07/13/2021 3:44 PM CDT Ordered by an unspecified provider. Scanned Document CARDIAC SERVICES ORD ERABLES * (ABNORMAL) CBC W/O DIFFERENTIAL (07/11/2021 2:48 AM CDT) Only the most recent of16 resultswithin the time period is included. WBC 5.9 4.4 - 10.7 x10E9/L 07/11/2021 4:06 AM CDT [facility] RBC 2.81(L) 3.80 - 5.40 x10E12/L 07/11/2021 4:06 AM CDT [facility] Hemoglobin 7.6(L) 12.0 - 17.6 gm/dL 07/11/2021 4:06 AM CDT [facility] Hematocrit 25.7(L) 35.2 - 51.7 % 07/11/2021 4:06 AM CDT [facility] MCV 91.5 80.7 - 98.3 fl 07/11/2021 4:06 AM CDT [facility] MCH 27.0 26.7 - 34.0 pg 07/11/2021 4:06 AM CDT [facility] MCHC 29.6(L) 30.8 - 35.9 gm/dL 07/11/2021 4:06 AM CDT [facility] Platelet Count 168 153 - 416 x10E9/L 07/11/2021 4:06 AM [facility] RDW-CV 19.7(H) 12.1 - 14.9 % 07/11/2021 4:06 AM CDT [facility] MPV 11.3 9.4 - 12.9 fl 07/11/2021 4:06 AM [facility] Blood BLOOD SPECIMEN / Unknown Lab Venipuncture / Unknown 07/11/2021 2:48 AM CDT 07/11/2021 3:55 AM CDT Kyle Whaley MD LAB - HEMATOLOGY ORD ERABLES [facility] [address] [place], [place] [id number] * (ABNORMAL) BASIC METABOLIC PANEL (CALCIUM TOTAL) (07/11/2021 2:48 AM CDT) Only the most recent of7 resultswithin the time period is included. Glucose 96 70 - 105 mg/dL 07/11/2021 5:08 AM [facility] Sodium 139 136 - 145 mmol/L 07/11/2021 5:08 AM [facility] Potassium 4.0 3.5 - 5.1 mmol/L 07/11/2021 5:08 AM [facility] Chloride 104 98 - 107 mmol/L 07/11/2021 5:08 AM [facility] CO2 29 23 - 31 mmol/L 07/11/2021 5:08 AM [facility] Calcium 7.8(L) 8.4 - 10.4 mg/dL 07/11/2021 5:08 AM [facility] Anion Gap 6(L) 8 - 18 mmol/L 07/11/2021 5:08 AM [facility] BUN 28(H) 8.4 - 25.7 mg/dL 07/11/2021 5:08 AM [facility] Creatinine 1.58(H) 0.72 - 1.25 mg/dL 07/11/2021 5:08 AM CDT [facility] eGFR by CKD-EPI 45(L) >=90 mL/min/1.7 3 m2 07/11/2021 5:08 AM CDT [facility] Blood BLOOD SPECIMEN / Unknown Lab Venipuncture / Unknown 07/11/2021 2:48 AM CDT 07/11/2021 3:55 AM CDT Narrative [facility] - 07/11/2021 5:08 AM CDT eGFR result was calculated using the updated CKD-EPI Creatinine Equations (2020). Prior to go live 2021 the eGFR was calculated using the MDRD calculation. Please note Reference Range change. Kyle Whaley MD LAB - CHEMISTRY LINDA LARKIN [facility] Organization Address City/State/ZIP Co de Phone Number [facility] [address] [place] [address] * EGD (07/06/2021 4:02 PM CDT) Report Endoscopy POC _ Patient Name: Donald Kruger ? Procedure Date: 07/06/2021 4:02 PM ? Date of : 1945 ?Admit Type: Inpatient Age: 76 ? Gender: Male Ethnicity: Not or ? Race: White Attending MD: Braeden Edwards MD ?? _ Procedure: ? Upper GI endoscopy Indications: ? Iron deficiency anemia, Melena Providers: ? Braeden Edwards MD (Doctor), Charity Zarate ? ANN-MARIE Butler, Charan Carmona, Recenterer Patient Profile: ? 76yo male with known duodenal ulcer with ongoing ? anemia requiring transfusion here for repeat EGD Medicines: ? Monitored Anesthesia Care Complications: ? No immediate complications. _ Estimated Blood Loss: ? Estimated blood loss: none. Procedure: ? Pre-Anesthesia Assessment: ? - Prior to the procedure, a History and Physical was ? performed, and patient medications, allergies and ? sensitivities were reviewed. The patient's tolerance ? of previous anesthesia was reviewed. ? - The risks and benefits of the procedure and the ? sedation options and risks were discussed with the ? patient. All questions were answered and informed ? consent was obtained. ? - Prior Anticoagulants: The patient has taken Plavix ? (clopidogrel), last dose was 3 days prior to procedure. ? - Prior Aspirin/ NSAID therapy: The patient has taken ? no previous aspirin or NSAID medications. ? - ASA Grade Assessment: III - A patient with severe ? systemic disease. ? After obtaining informed consent, the endoscope was ? passed under direct vision. Throughout the procedure, ? the patient's blood pressure, pulse, and oxygen ? saturations were monitored continuously. The Endoscope ? was introduced through the mouth, and advanced to the ? second part of duodenum. Moderate sedation was ? administered for [ ] minutes The upper GI endoscopy ? was accomplished without difficulty. The patient ? tolerated the procedure well. ? Impression: ?- Normal esophagus. ? - Normal stomach. ? - Non-bleeding duodenal ulcer with a clean ulcer base ? (Alli Class III). Clip (MR conditional) was placed ? for marking. ? - No specimens collected. Findings: ? The examined esophagus was normal. ? The entire examined stomach was normal. ? One non-bleeding superficial duodenal ulcer with a clean ulcer base ? (Alli Class III) was found in the first portion of the duodenum. The ? lesion was 12 mm in largest dimension. For location marking, one ? hemostatic clip was successfully placed (MR conditional). There was no ? bleeding at the end of the procedure. _ Recommendation: ?- Return patient to [facility] for ongoing care. ? - Clear liquid diet. ? - Monitor for recurrent bleeding ? - H/H, transfuse for Hb goal >7 ? - If has recurrent bleeding then would recommend STAT ? CTA and possible IR embolization ? - Consider restarting plavix in coming days if hb ? stable and no bleeding ? Procedure Code(s): ? --- Professional --- ? 22994, Esophagogastroduo denoscopy, flexible, transoral; diagnostic, ? including collection of specimen(s) by brushing or washing, when ? performed (separate procedure) ? 74516, Unlisted procedure, small intestine ? --- Technical --- ? 71724, Esophagogastroduo denoscopy, flexible, transoral; diagnostic, ? including collection of specimen(s) by brushing or washing, when ? performed (separate procedure) ? 80766, Unlisted procedure, small intestine Diagnosis Code(s): ? --- Professional --- ? K26.9, Duodenal ulcer, unspecified as acute or chronic, without ? hemorrhage or perforation ? D50.9, Iron deficiency anemia, unspecified ? K92.1, Melena (includes Hematochezia) ? --- Technical --- ? K26.9, Duodenal ulcer, unspecified as acute or chronic, without ? hemorrhage or perforation ? D50.9, Iron deficiency anemia, unspecified ? K92.1, Melena (includes Hematochezia) CPT copyright 2019 [employer]. All rights reserved. The codes documented in this report are preliminary and upon brass reclaimer review may be revised to meet current compliance requirements. ___ Braeden Edwards MD 07/06/2021 5:09:13 PM Number of Addenda: 0 Note Initiated On: 07/06/2021 4:02 PM [facility] 07/06/2021 4:02 PM CDT Narrative Procedure Note Braeden Edwards MD - 07/06/2021 5:09 PM CDT EGD done for anemia/bleeding. Again noted duodenal ulcer. No activebleeding. Endoclip placed for marking. monitor for recurrent bleeding.CTA and IR embolization if recurrent. Consider restarting plavix incoming days if Hb stable and no signs of bleeding. Braeden Edwards MD GI PROCEDURE ORDER CHEMA [facility] * (ABNORMAL) HGB HCT PANEL (07/06/2021 1:18 PM CDT) Only the most recent of6 resultswithin the time period is included. Hemoglobin 8.0(L) 12.0 - 17.6 gm/dL 07/06/2021 1:27 PM CDT [facility] Hematocrit 25.2(L) 35.2 - 51.7 % 07/06/2021 1:27 PM CDT [facility] Blood BLOOD SPECIMEN / Unknown Lab Venipuncture / Unknown 07/06/2021 1:18 PM CDT 07/06/2021 1:18 PM CDT Kyle Whaley MD LAB - HEMATOLOGY ORD ERABLES [facility] [address] [place] [address] * TRANSFUSE RED BLOOD CELL LEUKOREDUCED UNIT(S) (07/06/2021 9:10 AM CDT) Victorino Gibbs DO NURSING - BLOOD PROD TRANSFUSION * PREPARE (CROSSMATCH) RBC UNIT(S), 1 Units (07/06/2021 9:01 AM CDT) Only the most recent of5 resultswithin the time period is included. [facility] Unit Description AS1 LR PRBC [facility] Unit ABO A [facility] Unit Rh NEG [facility] Product Number R02 [facility] Unit Donor # [id number] [facility] Unit Status transfused [facility] Product Code [id number] [facility] Blood Type Barcode 0600 [facility] Expiration Date [id number] [facility] Blood Bank BLOOD SPECIMEN / Unknown 07/04/2021 7:10 AM CDT Victorino Gibbs LAB - BLOOD BANK ORD PLACITASBLES [facility] [address] [place] [address] * (ABNORMAL) RETIC COUNT (07/05/2021 4:31 AM CDT) [facility] Reticulocyte Count 4.75(H) 0.5 - 1.7 % 07/05/2021 8:57 AM CDT [facility] Reticulocyte Absolute 0.1064(H) 0.0041 - 0.0971 x10E6/uL 07/05/2021 8:57 AM CDT [facility] Reticulocyte Immature Fractionated 37.8(H) 0.9 - 14.3 % 07/05/2021 8:57 AM CDT [facility] Hemoglobin Retic 22.1(L) 27.8 - 36.8 pg 07/05/2021 8:57 AM [facility] Blood BLOOD SPECIMEN / Unknown Lab Venipuncture / Unknown 07/05/2021 4:31 AM CDT 07/05/2021 4:58 AM CDT Kyle Whaley MD LAB - HEMATOLOGY ORD ERABLES [facility] [address] [place] [address] * (ABNORMAL) COMPREHENSIVE METABOLIC PANEL (07/05/2021 4:31 AM CDT) Only the most recent of10 resultswithin the time period is included. Glucose 89 70 - 105 mg/dL 07/05/2021 5:38 AM [facility] Sodium 139 136 - 145 mmol/L 07/05/2021 5:38 AM [facility] Potassium 4.2 3.5 - 5.1 mmol/L 07/05/2021 5:38 AM [facility] Chloride 110(H) 98 - 107 mmol/L 07/05/2021 5:38 AM [facility] CO2 22(L) 23 - 31 mmol/L 07/05/2021 5:38 AM [facility] Calcium 7.4(L) 8.4 - 10.4 mg/dL 07/05/2021 5:38 AM [facility] Anion Gap 7(L) 8 - 18 mmol/L 07/05/2021 5:38 AM [facility] BUN 44(H) 8.4 - 25.7 mg/dL 07/05/2021 5:38 AM [facility] Creatinine 0.71(L) 0.72 - 1.25 mg/dL 07/05/2021 5:38 AM [facility] Alkaline Phosphatase 56 40 - 150 U/L 07/05/2021 5:38 AM [facility] ALT 10 0 - 61 U/L 07/05/2021 5:38 AM [facility] AST 10 5 - 34 U/L 07/05/2021 5:38 AM [facility] Protein Total 4.2(L) 6.4 - 8.3 gm/dL 07/05/2021 5:38 AM CDT [facility] Albumin 2.2(L) 3.2 - 4.6 gm/dL 07/05/2021 5:38 AM CDT [facility] Bilirubin Total 0.7 0.2 - 1.2 mg/dL 07/05/2021 5:38 AM CDT [facility] eGFR by CKD-EPI >90 >=90 mL/min/1.7 3 m2 07/05/2021 5:38 AM CDT [facility] Blood BLOOD SPECIMEN / Unknown Lab Venipuncture / Unknown 07/05/2021 4:31 AM CDT 07/05/2021 4:59 AM CDT Narrative [facility] - 07/05/2021 5:38 AM CDT eGFR result was calculated using the updated CKD-EPI Creatinine Equations (2020). Prior to go live 2021 the eGFR was calculated using the MDRD calculation. Please note Reference Range change. Maurizio Palmer MD LAB - CHEMISTRY LINDA LARKIN [facility] [address] [place] [address] * (ABNORMAL) IRON + TRANSFERRIN PANEL (07/05/2021 4:31 AM CDT) Iron 172 65 - 175 ug/dL 07/05/2021 9:05 AM CDT [facility] Transferrin 264 163 - 344 mg/dL 07/05/2021 9:05 AM CDT [facility] TIBC Calculated 330 240 - 450 ug/dL 07/05/2021 9:05 AM CDT [facility] Iron Saturation % 52(H) 20 - 50 % 07/05/2021 9:05 AM CDT [facility] Blood BLOOD SPECIMEN / Unknown Lab Venipuncture / Unknown 07/05/2021 4:31 AM CDT 07/05/2021 4:59 AM CDT Kyle Whaley MD LAB - CHEMISTRY LINDA LARKIN [facility] [address] [place] [address] * FERRITIN (07/05/2021 4:31 AM CDT) [facility] Ferritin 28 22 - 275 ng/mL 07/05/2021 9:25 AM CDT [facility] Blood BLOOD SPECIMEN / Unknown Lab Venipuncture / Unknown 07/05/2021 4:31 AM CDT 07/05/2021 4:59 AM CDT Kyle Whaley MD LAB - CHEMISTRY LINDA LARKIN Performing Organization Address [facility]/ZIP Co de Phone Number [facility] [address] [place] [address] * TRANSFUSE RED BLOOD CELL LEUKOREDUCED UNIT(S) (07/04/2021 9:02 PM CDT) Ollie Leslie MD NURSING - BLOOD PROD TRANSFUSION * TRANSFUSE RED BLOOD CELL LEUKOREDUCED UNIT(S) (07/04/2021 2:49 PM CDT) Ollie Leslie MD NURSING - BLOOD PROD TRANSFUSION * TYPE + SCREEN PANEL (07/04/2021 6:44 AM CDT) Only the most recent of2 resultswithin the time period is included. [facility] ABO Rh A NEG 07/04/2021 8:05 AM CDT [facility] Comment:History checked. Antibody Screen NEG 8:05 AM CDT [facility] Blood Bank BLOOD SPECIMEN / Unknown Lab Venipuncture / Unknown 07/04/2021 6:44 AM CDT 07/04/2021 7:10 AM CDT Ollie Leslie MD LAB - BLOOD BANK ORD ERABLES Performing Organization Address City/[facility]/ZIP Co de Phone Number [facility] [address] [place] [id number] [phone] * (ABNORMAL) DIGOXIN LEVEL (07/01/2021 5:22 AM CDT) Digoxin 0.4(L) 0.5 - 2.0 ng/mL 07/01/2021 6:20 AM CDT [facility] Blood BLOOD SPECIMEN / Unknown Lab Venipuncture / Unknown 07/01/2021 5:22 AM CDT 07/01/2021 5:46 AM CDT Maurizio Palmer MD LAB - CHEMISTRY LINDA LARKIN [facility] [address] [place] [address] * CT RENAL STONE (06/28/2021 12:27 PM CDT) Anatomical Region Laterality Modality Abdomen Computed Tomogra phy 06/28/2021 1:0 7 PM CDT Impressions 06/28/2021 1:23 PM CDT Distended bladder with enlarged prostate, likely outlet obstruction. No stone disease is seen. Probable gallstones. Small left pleural effusion. Advanced atherosclerosis. Postoperative and senescent change. Diverticulosis without evidence of diverticulitis. Edited by Malgorzata Blanchard on 06/28/2021 1:19 PM *Reading Radiologist: Jef Hernandez on 06/28/2021 at 1:23 PM Narrative 06/28/2021 1:[address] ABDOMEN AND PELVIS WITHOUT CONTRAST CLINICAL INDICATION: Flank pain, history of stones. TECHNIQUE: Axial CT images from the lung bases through the pubic symphysis were obtained without intravenous contrast. Radiation dose reduction technique was utilized. FINDINGS: A small left pleural effusion is noted. Coronary atherosclerosis and aortic valve prosthetic are noted. Bibasilar atelectasis is identified. The liver is normal. There is layering dense material within the gallbladder likely representing stones or sludge. The pancreas is atrophied but otherwise normal. The spleen and adrenal glands are normal appearing. The kidneys appear somewhat small with nonspecific perinephric stranding. No obstructive uropathy is noted. However, the bladder is distended. The prostate is enlarged. Severe atherosclerosis is seen throughout the abdomen and pelvis without evident aneurysm. Bowel is unremarkable with the exception of diverticulosis. No obstruction or perforation is seen. Left hip arthroplasty is identified. Degenerative changes are seen in the lumbosacral spine. Procedure Note Jef Hernandez, DO - 06/28/2021 CT ABDOMEN AND PELVIS WITHOUT CONTRAST CLINICAL INDICATION: Flank pain, history of stones. TECHNIQUE: Axial CT images from the lung bases through the pubic symphysis were obtained without intravenous contrast. Radiation dose reduction technique was utilized. FINDINGS: A small left pleural effusion is noted. Coronary atherosclerosis and aortic valve prosthetic are noted. Bibasilar atelectasis is identified. The liver is normal. There is layering dense material within the gallbladder likely representing stones or sludge. The pancreas is atrophied but otherwise normal. The spleen and adrenal glands are normal appearing. The kidneys appear somewhat small with nonspecific perinephric stranding. No obstructive uropathy is noted. However, the bladder is distended. The prostate is enlarged. Severe atherosclerosis is seen throughout the abdomen and pelvis without evident aneurysm. Bowel is unremarkable with the exception of diverticulosis. No obstruction or perforation is seen. Left hip arthroplasty is identified. Degenerative changes are seen in the lumbosacral spine. IMPRESSION Distended bladder with enlarged prostate, likely outlet obstruction. No stone disease is seen. Probable gallstones. Small left pleural effusion. Advanced atherosclerosis. Postoperative and senescent change. Diverticulosis without evidence of diverticulitis. Edited by Malgorzata Blanchard on 06/28/2021 1:19 PM *Reading Radiologist: Jef Hernandez on 06/28/2021 at 1:23 PM Eyal Mead MD CT ORDERABLES * (ABNORMAL) URINALYSIS REFLEX MICROSCOPIC REFLEX CULTURE (06/27/2021 5:10 PM CDT) Color UA Yellow Straw, Yellow 06/27/2021 5:29 PM CDT [facility] Clarity UA Clear Clear 06/27/2021 5:29 PM CDT [facility] Glucose UA Negative Negative 06/27/2021 5:29 PM CDT [facility] Bilirubin UA Negative Negative 06/27/2021 5:29 PM CDT [facility] Ketone UA Negative Negative 06/27/2021 5:29 PM CDT [facility] Specific Anita UA 1.012 1.005 - 1.030 06/27/2021 5:29 PM CDT [facility] Blood UA Negative Negative 06/27/2021 5:29 PM CDT [facility] pH UA 7.0 5.0 - 8.0 pH 06/27/2021 5:29 PM CDT [facility] Protein UA Negative Negative 06/27/2021 5:29 PM CDT [facility] Urobilinogen UA 2.0(A) Negative mg/dL 06/27/2021 5:29 PM CDT [facility] Nitrite UA Negative Negative 06/27/2021 5:29 PM CDT [facility] Leukocyte UA Negative Negative 06/27/2021 5:29 PM CDT [facility] Urine Microscopy Urine microscopy not indicated 06/27/2021 5:29 PM CDT [facility] Reflex Status Culture not indicated 06/27/2021 5:29 PM CDT [facility] Urine URINE SPECIMEN OBTAINED BY CLEAN CATCH PROCEDURE / Unknown Collection / Unknown 06/27/2021 5:10 PM CDT 06/27/2021 5:23 PM CDT Narrative [facility] - 06/27/2021 5:29 PM CDT Eyal Mead MD LAB - URINALYSIS ORD ERABLES [facility] [address] [place], [place] [id number] * EGD (06/27/2021 11:03 AM CDT) Report Endoscopy POC _ Patient Name: Donalddenis Kruger ? Procedure Date: 06/27/2021 11:03 AM ? Date of : 1945 ?Admit Type: Inpatient Age: 76 ? Gender: Male Ethnicity: Not or ? Race: White Attending MD: Braeden Edwards MD ?? _ Procedure: ? Upper GI endoscopy Indications: ? Acute post hemorrhagic anemia Providers: ? Braeden Edwards MD (Doctor), Mandy Hackett RN, ? Charan Carmona, Recenterer Patient Profile: ? 76yo male with anemia due to UGI bleeding here for EGD Medicines: ? Monitored Anesthesia Care Complications: ? No immediate complications. _ Estimated Blood Loss: ? Estimated blood loss: none. Procedure: ? Pre-Anesthesia Assessment: ? - Prior to the procedure, a History and Physical was ? performed, and patient medications, allergies and ? sensitivities were reviewed. The patient's tolerance ? of previous anesthesia was reviewed. ? - The risks and benefits of the procedure and the ? sedation options and risks were discussed with the ? patient. All questions were answered and informed ? consent was obtained. ? - Prior Anticoagulants: The patient has taken Eliquis ? (apixaban), last dose was 2 days prior to procedure. ? - Prior Aspirin/ NSAID therapy: The patient has taken ? no previous aspirin or NSAID medications. ? - ASA Grade Assessment: III - A patient with severe ? systemic disease. ? After obtaining informed consent, the endoscope was ? passed under direct vision. Throughout the procedure, ? the patient's blood pressure, pulse, and oxygen ? saturations were monitored continuously. The Endoscope ? was introduced through the mouth, and advanced to the ? second part of duodenum. The upper GI endoscopy was ? accomplished without difficulty. The patient tolerated ? the procedure well. ? Impression: ?- Normal esophagus. ? - Normal stomach. ? - Oozing duodenal ulcer with oozing hemorrhage ? (Alli Class Ib). Injected. Treated with bipolar ? cautery. ? - No specimens collected. Findings: ? The examined esophagus was normal. ? The entire examined stomach was normal. ? One oozing cratered duodenal ulcer with oozing hemorrhage (Alli Class ? Ib) was found in the first portion/duodenal sweep. The lesion was 12 mm ? in largest dimension. Area was successfully injected with 9 mL of a ? 1:10,000 solution of epinephrine for hemostasis. Coagulation for ? hemostasis using bipolar probe was successful. _ Recommendation: ?- [facility] patient to [facility] for [facility] care. ? - Clear liquid diet. ? - Serial H/H BID ? - Transfuse for goal Hb >7 ? - Continue PPI drip/BID x 72 hours ? - Carafate 1g QID x 7 days ? - If has recurrent bleeding may need IR therapy ? Procedure Code(s): ? --- Professional --- ? 84171, Esophagogastroduod enoscopy, flexible, transoral; with control of ? bleeding, any method ? --- Technical --- ? 72869, Esophagogastroduod enoscopy, flexible, transoral; with control of ? bleeding, any method Diagnosis Code(s): ? --- Professional --- ? K26.4, Chronic or unspecified duodenal ulcer with hemorrhage ? D62, Acute posthemorrhagic anemia ? --- Technical --- ? K26.4, Chronic or unspecified duodenal ulcer with hemorrhage ? D62, Acute posthemorrhagic anemia CPT copyright 2019 [employer]. All rights reserved. The codes documented in this report are preliminary and upon brass reclaimer review may be revised to meet current compliance requirements. __ Braeden Edwards MD 06/27/2021 11:39:03 AM Number of Addenda: 0 Note Initiated On: 06/27/2021 11:03 AM [facility] 06/27/2021 11:0 3 AM CDT Narrative Procedure Note Braeden Edwards MD - 06/27/2021 11:40 AM CDT EGD done for UGI bleeding/Anemia. Findings showed duodenal sweep ulcer~12mm. Some oozing. s/p Epi injection and treatment with bipolarcautery. No bleeding at end of procedure. Recommend PPI drip x 72 hours.Carafate 1g QID x 7 days. Monitor for recurrent bleeding. CLD today. Aylin Giraldo DO GI PROCEDURE ORDERABLES [facility] * PHOSPHORUS BLOOD (06/26/2021 3:17 AM CDT) Only the most recent of2 resultswithin the time period is included. Phosphorus 2.8 2.3 - 4.7 mg/dL 06/26/2021 5:12 AM CDT [facility] Blood BLOOD SPECIMEN / Unknown Lab Venipuncture / Unknown 06/26/2021 3:17 AM CDT 06/26/2021 4:25 AM CDT Malik Adler MD LAB - CHEMISTRY LINDA LARKIN [facility] [address] [place] [id number] * MAGNESIUM BLOOD (06/26/2021 3:17 AM CDT) Only the most recent of2 resultswithin the time period is included. Magnesium 2.0 1.6 - 2.6 mg/dL 06/26/2021 5:12 AM CDT [facility] Blood BLOOD SPECIMEN / Unknown Lab Venipuncture / Unknown 06/26/2021 3:17 AM CDT 06/26/2021 4:25 AM CDT Malik Adler MD LAB - CHEMISTRY LINDA LARKIN Performing Organization Address [facility]/ZIP Co de Phone Number [facility] [address] [place] [address] * TRANSFUSE RED BLOOD CELL LEUKOREDUCED UNIT(S) (06/26/2021 2:13 AM CDT) Malik Adler MD NURSING - BLOOD PROD TRANSFUSION * TRANSFUSE RED BLOOD CELL LEUKOREDUCED UNIT(S) (06/25/2021 10:55 PM CDT) Victorino Gibbs DO NURSING - BLOOD PROD TRANSFUSION * BLOOD TYPE VERIFICATION (06/25/2021 5:20 AM CDT) ABO Rh A NEG 06/25/2021 6:1 4 AM CDT [facility] Blood Bank BLOOD SPECIMEN / Unknown Lab Venipuncture / Unknown 06/25/2021 5:20 AM CDT 06/25/2021 5:51 AM CDT Aylin Giraldo DO LAB - BLOOD B ANK ORDERABLES Performing Organization Address [facility] Co de Phone Number [facility] [address] [phone] * (ABNORMAL) CBC W AUTO DIFFERENTIAL (06/25/2021 5:20 AM CDT) WBC 7.3 4.4 - 10.7 x10E9/L 06/25/2021 5:44 AM CDT [facility] WBC Corrected 06/25/2021 5:44 AM CDT [facility] RBC 1.79(L) 3.80 - 5.40 x10E12/L 06/25/2021 5:44 AM CDT [facility] Hemoglobin 4.2(LL) 12.0 - 17.6 gm/dL 06/25/2021 5:44 AM CDT [facility] Hematocrit 14.6(LL) 35.2 - 51.7 % 06/25/2021 5:44 AM CDT [facility] MCV 81.6 80.7 - 98.3 fl 06/25/2021 5:44 AM CDT [facility] MCH 23.5(L) 26.7 - 34.0 pg 06/25/2021 5:44 AM CDT [facility] MCHC 28.8(L) 30.8 - 35.9 gm/dL 06/25/2021 5:44 AM CDT [facility] Platelet Count 129(L) 153 - 416 x10E9/L 06/25/2021 5:44 AM CDT [facility] RDW-CV 20.1(H) 12.1 - 14.9 % 06/25/2021 5:44 AM CDT [facility] MPV 11.7 9.4 - 12.9 fl 06/25/2021 5:44 AM CDT [facility] Neutrophils % 71.6 44.0 - 73.0 % 06/25/2021 5:44 AM CDT [facility] Lymphocytes % 15.8(L) 20.0 - 43.0 % 06/25/2021 5:44 AM CDT [facility] Monocytes % 10.7 5.0 - 13.0 % 06/25/2021 5:44 AM CDT [facility] Eosinophils % 1.2 0.0 - 6.0 % 06/25/2021 5:44 AM CDT [facility] Basophils % 0.3 0.0 - 2.0 % 06/25/2021 5:44 AM CDT [facility] Immature Granulocytes 0.4 0 - 1 % 06/25/2021 5:44 AM CDT [facility] Neutrophil Absolute 5.19 2.01 - 7.14 x10E9/L 06/25/2021 5:44 AM CDT [facility] Lymphocytes Absolute 1.15 1.07 - 3.94 x10E9/L 06/25/2021 5:44 AM CDT [facility] Monocytes Absolute 0.78 0.26 - 1.07 x10E9/L 06/25/2021 5:44 AM CDT [facility] Eosinophils Absolute 0.09 0 - 0.47 x10E9/L 06/25/2021 5:44 AM CDT [facility] Basophils Absolute 0.02 0 - 0.08 x10E9/L 06/25/2021 5:44 AM CDT [facility] Immature Granulocytes Absolute 0.03 0.00 - 0.06 x10E9/L 06/25/2021 5:44 AM CDT [facility] nRBC Auto 1 /100 WBC 06/25/2021 5:44 AM CDT [facility] Blood BLOOD SPECIMEN / Unknown Lab Venipuncture / Unknown 06/25/2021 5:20 AM CDT 06/25/2021 5:20 AM CDT Victorino Gibbs DO LAB - HEMATOLOGY ORD ERABLES Performing Organization Address [facility] Co de Phone Number [facility] [address] [place] [phone] * (ABNORMAL) PT-INR (06/25/2021 5:16 AM CDT) PT 19.4(H) 12.1 - 14.8 sec 06/25/2021 5:43 AM CDT [facility] INR 1.6(H) 0.9 - 1.1 06/25/2021 5:43 AM CDT [facility] Blood BLOOD SPECIMEN / Unknown Lab Venipuncture / Unknown 06/25/2021 5:16 AM CDT 06/25/2021 5:21 AM CDT Narrative [facility] - 06/25/2021 5:43 AM CDT Conventional Warfarin Anticoagulant Therapy: INR Reference Range: ??2.0-3.0 Intensive Warfarin Anticoagulant Therapy: INR Reference Range: ? 2.5-3.5 Victorino Gibbs DO LAB - COAGULATION OR DERABLES Performing Organization Address [facility]/ZIP Co de Phone Number [facility] [address] [place] [phone] * LACTIC ACID BLOOD (06/25/2021 5:16 AM CDT) Lactic Acid 0.9 <=2 mmol/L 06/25/2021 5:54 AM CDT [facility] Blood BLOOD SPECIMEN / Unknown Lab Venipuncture / Unknown 06/25/2021 5:16 AM CDT 06/25/2021 5:48 AM CDT Victorino Gibbs DO LAB - CHEMISTRY LINDA LARKIN [facility] [address] [place] [address]
--- OUTSIDE RECORDS SUMMARY | 2024-05-01 10:20 | XMS_ITS | Clinical Summary ---
Author Organization [facility] Address [address] [place] [address] Care Team Providers Care Project Engineer Name Role Phone Unavailable Primary Care Provider Unavailabl e Source Comments [facility] [employer],non-owned Affiliates and Associated Physician Practices is amultiple site organization consisting of ambulatory clinics and hospital sitesin [place], [place], [place] and [place]. This disclosure is being madepursuant to the Care Everywhere program and may not contain all information available regarding this patient. Last updated 17.[facility] [employer] Allergies No known active allergies Medications * Be aware that medications may not be up to date on this document. Alwaysverify current medications with the patient. Medication Sig Dispensed Refills Start Date End Date Status acetaminophen (TYLENOL) 325 MG tablet Take 650 mg by mouth every 4 hours as needed for Fever or Pain Maximum allowable Acetaminophen amount = 4 Grams (4000 mg) / 24 hours. Active atorvastatin (LIPITOR) 40 MG tablet Take 40 mg by mouth at bedtime Active baclofen (LIORESAL) 10 MG tablet Take 10 mg by mouth 3 times daily May cause drowsiness. Active citalopram (CELEXA) 40 MG tablet Take 40 mg by mouth once daily Active digoxin (LANOXIN) 0.125 MG tablet Take 0.125 mg by mouth once daily Active apixaban (ELIQUIS) 5 MG tablet Take 5 mg by mouth 2 times daily Active vitamin D, ergocalciferol, (DRISDOL) 1.25 MG (27273 UT) capsule Take 50,000 Units by mouth every 7 days Active eucerin (EUCERIN) lotion Apply to affected area 2 times daily Active furosemide (LASIX) 40 MG tablet Take 40 mg by mouth once daily Active lisinopril (PRINIVIL; ZESTRIL) 10 MG tablet Take 10 mg by mouth once daily Active potassium chloride ER (KLOR-CON M) 20 MEQ tablet Take 20 mEq by mouth once daily Active spironolactone (ALDACTONE) 25 MG tablet Take 25 mg by mouth once daily Active traZODone (DESYREL) 100 MG tablet Take 100 mg by mouth at bedtime Active albuterol HFA (PROVENTIL; VENTOLIN; PROAIR) 108 (90 Base) MCG/ACT inhaler Inhale 1 puff by mouth every 4 hours as needed Active diphenhydrAMINE (BENADRYL) 25 MG tablet Take 25 mg by mouth nightly as needed Active HYDROcodone-acetami nophen (NORCO) 5-325 MG tablet Take 1 tablet by mouth 3 times daily as needed for Pain Active umeclidinium (INCRUSE ELLIPTA) 62.5 MCG/INH inhaler Inhale 1 puff by mouth once daily Active tamsulosin (FLOMAX) 0.4 MG capsule Take 1 (one) capsule by mouth once daily At the same time every day after a meal. 07/11/2021 Active pantoprazole EC (PROTONIX) 40 MG tablet Take 1 (one) tablet by mouth 2 times daily 07/11/2021 Active sucralfate (CARAFATE) 1 GM tablet Take 1 (one) tablet by mouth 4 times daily - before meals & nightly 07/11/2021 Active Active Problems Problem Noted Date Diagnosed Date Gastrointestinal hemorrhage 06/24/2021 Family History Medical History Relation Name Comments Cancer - Lung Father Relation Name Status Comments Father Social History Tobacco Use Types Packs/Day Years [...] Mass Index 25.99 07/14/2021 11:09 AM CDT Plan of Treatment Health Maintenance Due Date Last Done Comments MEDICARE AWV ? 12 MONTHS 1945 DTAP/TDAP/TD VACCINES (1 - Tdap) 1963 PNEUMOCOCCAL VACCINE 50+ (1 of 1 - PCV) 1994 ZOSTER VACCINE (1 of 2) 1994 Respiratory Syncytial Virus (RSV) Vaccine Pt: or over 60 yrs (1 - 1-dose 75+ series) 2019 COVID-19 VACCINE ( - 2023-2 5 season) 2023 INFLUENZA VACCINE (#1) 2023 DEPRESSION SCREENING 04/09/2024 HEPATITIS B VACCINE Aged Out No longe r eligible based on patient's age to complete this topic HIB VACCINE Aged Out No longer eligi ble based on patient's age to complete this topic HPV VACCINE Aged Out No longer eligi ble based on patient's age to complete this topic MENINGOCOCCAL (Group B) VACCINE Aged Out No longer eligible based on patient's age to complete this topic MENINGOCOCCAL VACCINE Aged Out No christopher gaudencio eligible based on patient's age to complete this topic Advance Directives Documents on File Type Date Recorded Patient Non Acoustic Operator Expl anation Adv Directive/Living Will/POA 07/13/2021 3:35 PM * LIMITED RESUSCITATION-PRIOR AND AFTER ARREST (Latest Code Status on File) Date Activated Date Inactivated Comments 07/05/2021 11:10 AM 07/11/2021 8:00 PM Question Answer Comments Limited Resuscitation: No Chest Compress ionNo Intubation, No Invasive Ventilation * Full Code Date Activated Date Inactivated Comments 06/25/2021 4:47 AM 07/05/2021 11:10 AM
--- OUTSIDE RECORDS SUMMARY | 2024-05-01 10:20 | XMS_ITS | Referral Summary ---
Author Organization [facility] Address [address] [place] [address] Care Team Providers Care Leakage Tester Name Role Phone Unavailable Primary Care Provider Unavailabl e Source Comments [facility],non-owned Affiliates and Associated Physician Practices is amultiple site organization consisting of ambulatory clinics and hospital sitesin [place], [place], [place] and [place]. This disclosure is being madepursuant to the Care Everywhere program and may not contain all information available regarding this patient. Last updated 17.[facility] [employer] Allergies No known active allergies Medications * [...] Active vitamin D, ergocalciferol, (DRISDOL) 1.25 MG (85417 UT) capsule Take 50,000 Units by mouth [...] Mass Index 25.99 07/14/2021 11:09 AM CDT Functional Status Functional Status Response Date of Assess ment Is person deaf or have serious hearing difficult y? No 06/25/2021 Is person blind or have serious difficulty seein g? No 06/25/2021 Does person have serious dif ficulty walking/climbing stairs? Yes 06/25/2021 Does person have difficulty dressing/bathing? Ye s 06/25/2021 Does person have difficulty doing errands alone? Yes 06/25/2021 Cognitive Status Response Date of Assessm ent Does person have difficulty concentrating/remembering/making decisions? Yes 06/25/2021 Plan of Treatment Not on file Advance Directives Documents on File Type Date Recorded Patient [employer] Supervisor Expl anation Adv Directive/Living Will/POA 07/13/2021 3:35 [...]
--- OUTSIDE RECORDS SUMMARY | 2024-05-01 10:21 | XMS_ITS | Referral Summary ---
Author Organization [facility] [place] [address] [place] [address] [address] [place] [address] Care Team Providers Care Roll Mechanic Name Role Phone Phuong Nolan MD Primary Care Provider Encounters Date Type Department Care Team Description 02/29/2024 3:00 PM CORPORATE STRATEGY ASSOCIATE Office Visit [facility] Cardiology [address] [facility] [address] [place] [address] Raad Mott MD Coronary artery disease involving navajo coronary artery of navajo heart without angina pectoris (Primary Dx); S/P TAVR (transcatheter aortic valve replacement); Heart failure with mildly reduced ejection fraction (HFmrEF, 41-49%) (HCC); Longstanding persistent atrial fibrillation (CMS/HCC) (HCC); Mixed hyperlipidemia; Tobacco dependence from Last 3 Months Allergies No known active allergies Medications acetaminophen (TYLENOL) 325 mg tablet Take 2 tablets (650 mg total) by mouth every 4 (four) hours as needed Active albuterol HFA (PROVENTIL HFA,VENTOLIN HFA,PROAIR HFA) 90 mcg/actuation inhaler Inhale 1 puff every 4 (four) hours as needed Active atorvastatin (LIPITOR) 40 mg tablet Take 1 tablet (40 mg total) by mouth nightly Active baclofen (LIORESAL) 10 mg tablet Take 1 tablet (10 mg total) by mouth 3 (three) times a day Active citalopram (CeleXA) 40 mg tablet Take 1 tablet (40 mg total) by mouth daily Active digoxin (LANOXIN) 125 mcg (0.125 mg) tablet Take 1 tablet (125 mcg total) by mouth daily 2 Active Eliquis 5 mg tablet Take 1 tablet (5 mg total) by mouth every 12 (twelve) hours 2 Active ergocalciferol (VITAMIN D) 50,000 unit capsule Take 1 capsule (50,000 Units total) by mouth once a week Active diphenhydrAMINE (BENADRYL) 25 mg capsule Take 1 tablet/capsule (25 mg total) by mouth nightly as needed Active lidocaine HCL 1 % lotion Apply topically 2 (two) times a day Active furosemide (LASIX) 40 mg tablet Take 1 tablet (40 mg total) by mouth daily Active lisinopriL (PRINIVIL,ZESTR IL) 10 mg tablet Take 1 tablet (10 mg total) by mouth daily [address] (PROTONIX) 40 mg EC tablet Take 1 tablet (40 mg total) by mouth every morning 2 Active potassium chloride ER (KLOR-CON) 20 mEq CR tablet Take 1 tablet (20 mEq total) by mouth daily Active spironolactone (ALDACTONE) 25 mg tablet Take 1 tablet (25 mg total) by mouth daily Active sucralfate (CARAFATE) 1 gram tablet Take 1 tablet (1 g total) by mouth 2 Active tamsulosin (FLOMAX) 0.4 mg extended release capsule Take 1 capsule (0.4 mg total) by mouth daily 2 Active traZODone (DESYREL) 100 mg tablet Take 1 tablet (100 mg total) by mouth nightly at bedtime. 2 Active oxycodone myristate (XTAMPZA ER ORAL) Take 1 capsule by mouth every 12 (twelve) hours 23.5 mg BID 2 Active cholecalciferol 25 mcg (1,000 unit) tablet Take 2 tablets (2,000 Units total) by mouth 2 (two) times a day Active ferrous sulfate 134 mg (27 mg of elemental iron) tabletIndicatio ns:Iron Deficiency Anemia Take 1 tablet (134 mg total) by mouth 2 (two) times a day with meals Active Active Problems Problem Noted Date Diagnosed Date Coronary artery disease invo lving navajo coronary artery of navajo heart without angina pectoris 02/29/2024 Tobacco dependence 02/29/2024 Mixed hyperlipidemia 02/29/2024 Chest pain 07/06/2023 Atrial fibrillation (CMS/HCC) 09/28/2021 Heart failure with mildly re duced ejection fraction (HFmrEF, 41-49%) 09/28/2021 S/P TAVR (transcatheter aortic valve replacement ) 09/14/2021 Cardiomyopathy 09/14/2021 Social History Tobacco Use Types Packs/Day Years Used Date Smoking Tobacco: Every Day Tobacco Cessation:Ready to Q uit: Not Asked; Counseling Given: Not Answered AUDIT-C Answer Date Recorded Q1: How often do you have a drink containing alc ohol? Monthly or less 09/14/2021 Average Number of Drinks Not on file 022 Q3: How often do you have si x or more drinks on one occasion? Never 09/14/2021 Sex and Gender Information Value Date Recorded Sex Assigned at Not on file Legal Sex Male 2:47 PM CORPORATE STRATEGY ASSOCIATE Gender Identity Not on file Sexual Orientation Not on file Last Filed Vital Signs Vital Sign Reading Time Taken Comments Blood Pressure 120/60 02/29/2024 2:30 PM CORPORATE STRATEGY ASSOCIATE Pulse 73 02/29/2024 2:30 PM CORPORATE STRATEGY ASSOCIATE Temperature - - Respiratory Rate - - Oxygen Saturation 93% 02/29/2024 2:30 PM CORPORATE STRATEGY ASSOCIATE Inhaled Oxygen Concentration - - Weight 82.1 kg (181 lb) 02/29/2024 2:30 PM CORPORATE STRATEGY ASSOCIATE Height 175.3 cm (5' 9 ) 02/29/2024 2:30 PM CORPORATE STRATEGY ASSOCIATE Body Mass Index 26.73 02/29/2024 2:30 PM CORPORATE STRATEGY ASSOCIATE Plan of Treatment Not on file Insurance [employer] MEDICARE MEDICARE FOR LIFE Care Teams Roll Mechanic Relationship Specialty Start Date End Date Phuong Nolan MD [address] [place] [address] PCP - General Family Medicine 05/11/21
--- OUTSIDE RECORDS SUMMARY | 2024-05-01 10:21 | XMS_ITS | Clinical Summary ---
Author Organization [facility] [place] [address] [place] [address] Care Team Providers Care Architecture Department Chair Name Role Phone Phuong Nolan MD Primary Care Provider Allergies No known active allergies Medications acetaminophen [...] Diagnosed Date Coronary artery disease invo lving [place]innecock coronary artery of [place] heart without angina pectoris 02/29/2024 Tobacco dependence 02/29/2024 Mixed hyperlipidemia 02/29/2024 Chest pain 07/06/2023 Atrial fibrillation (CMS/HCC) 09/28/2021 Heart failure with mildly re duced ejection fraction (HFmrEF, 41-49%) 09/28/2021 S/P TAVR (transcatheter aortic valve replacement ) 09/14/2021 Cardiomyopathy 09/14/2021 Encounters Date Type Department Care Team Description 02/29/2024 3:00 PM APERTURE MASK ETCHER Office Visit [facility] Cardiology [address] [place] [id number] Raad Mott MD Coronary artery disease involving [place] coronary artery of [place] heart without angina pectoris (Primary Dx); S/P TAVR (transcatheter aortic valve replacement); Heart failure with mildly reduced ejection fraction (HFmrEF, 41-49%) (HCC); Longstanding persistent atrial fibrillation (CMS/HCC) (HCC); Mixed hyperlipidemia; Tobacco dependence from Last 3 Months Surgical History Surgery Date Site/Laterality Comments ANGIOPLASTY Medical History Medical History Date Comments Hypertension Heart attack (HCC) Heart murmur Social History Tobacco Use Types Packs/Day Years [...] on file Legal Sex Male 2:47 PM APERTURE MASK ETCHER Gender Identity Not on file Sexual Orientation Not on file Obstetrics History Last Filed Vital Signs Vital Sign Reading Time Taken Comments Blood Pressure 120/60 02/29/2024 2:30 PM APERTURE MASK ETCHER Pulse 73 02/29/2024 2:30 PM APERTURE MASK ETCHER Temperature - - Respiratory Rate - - Oxygen Saturation 93% 02/29/2024 2:30 PM APERTURE MASK ETCHER Inhaled Oxygen Concentration - - Weight 82.1 kg (181 lb) 02/29/2024 2:30 PM APERTURE MASK ETCHER Height 175.3 cm (5' 9 ) 02/29/2024 2:30 PM APERTURE MASK ETCHER Body Mass Index 26.73 02/29/2024 2:30 PM APERTURE MASK ETCHER Plan of Treatment Health Maintenance Due Date Last Done Comments Depression Screening 1944 Fall Risk Assessment 1944 Hepatitis C Screening 1945 Pneumococcal vaccine 65+ (1 of 2 - PCV) 1950 DTaP/Tdap/Td Vaccine (1 - Tdap) 1955 Hepatitis B Screening 1962 Zoster Vaccine (1 of 2) 1994 Well Visit 65+ 2009 Influenza Vaccine (#1) 2023 03/28/2022 Insurance [facility] MEDICARE MEDICARE [facility] Care Teams Architecture Department Chair Relationship Specialty Start Date End Date Phuong Nolan MD [address] [facility] [address] [place] [id number] PCP - General Family Medicine 05/11/21
== END 2024-04-27 14:14 | disposition home or self-care (01) ==
PROVIDERS: Emergency Provider Emergency Medicine; PCP Family Medicine
DX: S61.412A Laceration without foreign body of left hand, initial encounter (principal); S80.02XA Contusion of left knee, initial encounter; S80.01XA Contusion of right knee, initial encounter; S05.11XA Contusion of eyeball and orbital tissues, right eye, initial encounter; J44.9 Chronic obstructive pulmonary disease, unspecified; I25.10 Atherosclerotic heart disease of native coronary artery without angina pectoris; I12.9 Hypertensive chronic kidney disease with stage 1 through stage 4 chronic kidney disease, or unspecified chronic kidney disease; N18.9 Chronic kidney disease, unspecified; I69.919 Unspecified symptoms and signs involving cognitive functions following unspecified cerebrovascular disease; I73.9 Peripheral vascular disease, unspecified; F17.210 Nicotine dependence, cigarettes, uncomplicated; Z90.2 Acquired absence of lung [part of]; Z96.651 Presence of right artificial knee joint; Z95.2 Presence of prosthetic heart valve; Z79.82 Long term (current) use of aspirin; Z79.899 Other long term (current) drug therapy; Z79.01 Long term (current) use of anticoagulants; M50.321 Other cervical disc degeneration at C4-C5 level; M17.12 Unilateral primary osteoarthritis, left knee; M19.042 Primary osteoarthritis, left hand; M19.041 Primary osteoarthritis, right hand; I48.91 Unspecified atrial fibrillation; I45.10 Unspecified right bundle-branch block; R94.31 Abnormal electrocardiogram [ECG] [EKG]; W18.39XA Other fall on same level, initial encounter
CPT/HCPCS: 36415; 70450; 70486; 71260; 72125; 73130; 73562; 74177; 80053; 85025; 85055; 85610; 85730; 93005; 96374; 99284; J1171; Q9967